=== PATIENT | female | born 1945 | race Caucasian/White ===

== ENCOUNTER → 2022-10-03 12:16 | Outpatient (CLI) | payer MEDICARE, SELFPAY ==
--- NOTE | ~2022-10-03 | DEXA_ITS ---
Bone Density Report Name: BOB DIAZ Age: 76 Sex: Female Ethnicity: White Date of : 1945 Indication: postmenopausal; screening for osteoporosis; height loss; prior fracture; hysterectomy; Referring Provider: TYE POSEY Study: Bone densitometry was performed. Exam Date: October 03, 2022 Accession number: [id number] Bone Density: Region BMD T-score Z-score Classification AP Spine (L1-L4) 0.881 -1.5 1.0 Osteopenia Femoral Neck (Left) 0.585 -2.4 -0.2 Osteopenia Total Hip (Left) 0.715 -1.9 0.0 Osteopenia Femoral Neck (Right) 0.617 -2.1 0.1 Osteopenia Total Hip (Right) 0.727 -1.8 0.1 Osteopenia Total Hip Mean 0.721 -1.9 0.1 Osteopenia World Health Organization criteria for BMD impression classify patients as: Normal (T-score at or above -1.0), Osteopenia (T-score between -1.0 and -2.5), or Osteoporosis (T-score at or below -2.5). 10-year Fracture Risk(1): Major Osteoporotic Fracture 28% Hip Fracture 10% Reported Risk Factors: [place] (), Neck BMD=0.585, BMI=23.4, previous fracture, alcohol use (1) FRAX(R) Version 3.08. Fracture probability calculated for an untreated patient. Fracture probability may be lower if the patient has received treatment. Clinical Information Provided by Patient: Has had a low trauma fracture Has 3 or more alcoholic drinks per day Has used the following medications: Vitamin D, Calcium, LEVOTHYROXINE Has the following medical conditions: Hysterectomy Patient maximum height was 65.0 Menopause Age: 30 Drinks caffeinated beverages Onset of menses at age 13 Number of children 3 Impression: The patient has low bone mass, based on the Left Femoral Neck T-score. The patient has an estimated ten-year risk of hip fracture of 10% and an estimated ten-year risk of major fracture of 28%, based on the WHO FRAX algorithm. The patient has risk factors, including: excessive alcohol use, previous fracture. Discussion: BONE DENSITY IS LOW AT ONE OR MORE SKELETAL SITES. THE PATIENT'S BMD AND CLINICAL RISK FACTORS CONTRIBUTE TO THIS PATIENT'S HIGH RISK OF FRACTURE. This patient's lowest T-score is low at one or more skeletal sites. It meets the World Health Organization's (WHO) criteria for ?low bone mass? (T-score between -1.0 and -2.5). The patient's 10-year risk of hip fracture and 10 year risk of a major osteoporotic fracture as calculated by FRAX exceeds the threshold where pharmacological therapy is recommended by the National Osteoporosis Foundation (NOF). However, all treatment decisions require clinical judgment and consideration of individual patient factors, including patient preferences, comorbidities, previous drug use, risk factors not captured in the FRAX model (e.g., frailty, falls, vitamin D deficiency, increased bone turnover, interval significa
== END ==
PROVIDERS: PCP Obstetrics & Gynecology Gynecology; Visit Provider Obstetrics & Gynecology Gynecology
DX: Z78.0 Asymptomatic menopausal state (principal); M85.88 Other specified disorders of bone density and structure, other site; M85.852 Other specified disorders of bone density and structure, left thigh; M85.851 Other specified disorders of bone density and structure, right thigh
CPT/HCPCS: 77080

== ENCOUNTER 2025-07-22 08:18 | Outpatient (CLI) | payer MEDICARE, SELFPAY ==
--- OUTSIDE RECORDS SUMMARY | 2019-03-05 11:10 | XMS_ITS | Continuity of Care Document ---
Author Organization [facility] [employer] Address [address] [place] [address] Phone Care Team Providers Care Collet Driller Name Role Phone Chaz Vernon DO Unava ilable Allergies, Adverse Reactions, Alerts Substance Reaction Status Criticality No Known Drug Allergies Other Active No I nformation Medications Medication Instructions Dosage Effective Dates (start - stop) Status Comments Levoxyl 112 mcg tablet TAKE 1 TABLET BY MOUTH EVERY DAY - Active ATORVASTATIN 40 MG TABLET TAKE 1 TABLET BY MOUTH EVERY DAY - Active potassium chloride ER 10 mEq capsule,extended release TAKE 3 CAPSULES EVERY MORNING AND 3 CAPSULES BY MOUTH EVERY EVENING - Active indapamide 2.5 mg tablet TAKE 1 TABLET BY MOUTH EVERY MORNING - Active clonidine HCl 0.2 mg tablet TAKE 1 TABLET BY MOUTH EVERY DAY - Active ProAir HFA 90 mcg/actuation aerosol inhaler inhale 2 puff by inhalation route every 4 - 6 hours as needed - Active AMLODIPINE BESYLATE 10 MG TAB TAKE 1 TABLET BY MOUTH EVERY DAY 10 MG - Active SINGULAIR 10 MG TABLET TAKE 1 TABLET BY MOUTH AT BEDTIME - Active omeprazole 20 mg capsule,delayed release TAKE ONE CAPSULE BY MOUTH EVERY MORNING - Active Vitamin B-12 500 mcg tablet take 1 Tablet by Oral route every day 1 Tablet - Active Caltrate 600 + D 600 mg (1,500 mg)-800 unit chewable tablet 1 tablet every other day - Active biotin 1 mg capsule Take 1 tablet daily 6 - Active Vitamin D3 1,000 unit tablet take 1 by Oral route QD 1 - Active Aspirin Low Dose 81 mg tablet,delayed release take 1 tablet by oral route every other day - Active LEVOTHYROXINE 112 MCG TABLET TAKE 1 TABLET BY MOUTH EVERY DAY - No Longer Active Advance Directives Directive Yes / No Effective Date File Name No Information Encounters Encounter Description Practice Location Reason(s) For Visit Diagnoses Date Provider Providers Copied on Encounter [facility], [address], [place], [place], [address] , tel: [phone] [facility] No Information 9 Cinda Ware. [address] [place] [address], [id number], [place]. tel:[phone] [facility], [address], [place], [place], [address] , tel: [phone] [facility] No Information 9 Cinda Ware. [address] [place] [address], [id number], [place]. tel:[phone] [facility], [address], [place], [place], [address] , tel: [phone] [facility] No Information 9 Cinda Ware. [address] [place] [address], [id number], [place]. tel:[phone] [facility], [address], [place], [place], [address] , tel:[phone] [facility] No Information 9 Cinda Ware. [address] [place] [address], [id number], [place]. tel:[phone] [facility], [address], [place], [place], [address] , tel:[phone] [facility] No Information 8 Cinda Ware. [address] [facility], [place], [place], [address], [place]. tel:[phone] [facility], [address], [place], [place], [address] , [place] tel: [phone] [facility] Essential (primary) hypertensionHyp erlipidemia, unspecifiedHypo natremiaUnspeci fied asthma, uncomplicatedHy pothyroidism, unspecifiedGast ro-esophageal reflux disease without esophagitisClos ed nondisplaced fracture of acromial end of right clavicle with routine healing, subsequent encounter Yuval Mcgovern. [address] [facility], [address], [place], [place], [address]. tel:[phone] Referring Provider: Froilan Barakat, [address] [facility] [address], [place], [address] . tel:[phone] [facility], [address], [place], [address] , [place] tel: [phone] [facility] Essential (primary) hypertensionHyp erlipidemia, unspecifiedHypo thyroidism, unspecified 8 Yuval Mcgovern. [address] [facility], [address], [place], [place], [address]. tel:[phone] Referring Provider: Froilan Barakat, [address] [facility] [address], [place], [address] . tel:[phone] [facility], [address], [place], [place], [address] , [place] tel: [phone] [facility] No Information 8 Yuval Mcgovern. [address] [facility], [address], [place], [place], [address]. tel:[phone] [facility], [address], [place], [place], [address] , [place] tel: [phone] [facility] No Information 8 Yuval Mcgovern. [address] [facility], [address], [place], [place], [address]. tel:[phone] [facility], [address], [place], [address] , [place] tel: [phone] [facility] Essential (primary) hypertensionHyp erlipidemia, unspecifiedHypo natremiaUnspeci fied asthma, uncomplicatedHy pothyroidism, unspecifiedGast ro-esophageal reflux disease without esophagitis Mar-0 8 Yuval Mcgovern. [address] [facility] [address], [address], [place], [place], [address]. tel:[phone] Referring Provider: Froilan Barakat, [address] [facility] [address], [place], [address] . tel:[phone] [facility], [address], [place], [place], [address] , tel: [phone] [facility] Essential (primary) hypertensionHyp erlipidemia, unspecifiedAbno rmal glucose Kishan- 8 Yuval Mcgovern. [address] [facility], [address], [place], [place], [address]. tel:[phone] Referring Provider: Froilan Barakat, [address] [facility] [address], [place], [address] . tel:[phone] [facility], [address], [place], [place], [address] , [place] tel: [phone] [facility] No Information Sep- 7 Madisyn Patton. [address] [facility], [address], [place], [place], [address], [place]. tel:[phone] [facility], [address], [place], [place], [address] , [place] tel: [phone] [facility] Slow heart rate Sep- 7 Yuval Mcgovern. [address] [facility], [address], [place], [place], [address]. tel:[phone] [facility], [address], [place], [address] , [place] tel: [phone] [facility] Hypothyroidism, unspecifiedEsse ntial (primary) hypertensionGas tro-esophageal reflux disease without esophagitisAlle rgic rhinitis, unspecifiedUnsp ecified asthma, uncomplicatedMi tral valve prolapseHyperli pidemia, unspecifiedHypo natremiaSciatic a of left sideGreater trochanteric bursitis of left hipPrimary osteoarthritis of left knee 0 Barakatjayce Mcgovern. [address], [address], [place], [place], [address]. tel:[phone] Referring Provider: Froilan Barakat, [address] [facility] [address], [place], [address] . tel:[phone] [facility], [address], [place], [place], [address] , tel: [phone] [facility] Hypothyroidism, unspecifiedEsse ntial (primary) hypertensionHyp erlipidemia, unspecified Barakatjayce Mcgovern. [address] [facility] [address], [place], [place], [address]. tel:[phone] Referring Provider: Froilan Barakat, [address] [facility] [address], [place], [address] . tel:[phone] [facility], [address], [place], [place], [address] , tel: [phone] [facility] Sciatica of left side Yuval Mcgovern. [address], [address], [place], [place], [address]. tel:[phone] [facility], [address], [place], [place], [address] , [place] tel: [phone] [facility] Hypothyroidism, unspecifiedEsse ntial (primary) hypertensionGas tro-esophageal reflux disease without esophagitisAlle rgic rhinitis, unspecifiedUnsp ecified asthma, uncomplicatedMi tral valve prolapseHyperli pidemia, unspecifiedHypo natremiaLeft sided sciatica Yuval Mcgovern. [address] [facility], [address], [place], [place], [address]. tel:[phone] Referring Provider: Froilan Barakat, [address] [facility] [address], [place], [address] . tel:[phone] [facility], [address], [place], [place], [address] , tel: [phone] [facility] Essential (primary) hypertensionHyp erlipidemia, unspecified 7 Yuval Mcgovern. [address] [facility], [address], [place], [place], [address]. tel:[phone] Referring Provider: Froilan Barakat, [address] [facility] [address], [place], [address] . tel:[phone] [facility], [address], [place], [place], [address] , tel: [phone] [facility] Hypothyroidism, unspecifiedEsse ntial (primary) hypertensionGas tro-esophageal reflux disease without esophagitisAlle rgic rhinitis, unspecifiedHype rlipidemia, unspecifiedUnsp ecified asthma, uncomplicatedMi tral valve prolapse 6 Yuval Mcgovern. [address] [facility], [address], [place], [place], [address]. tel:[phone] Referring Provider: Froilan Barakat, [address] [facility] [address], [place], [address] . tel:[phone] [facility], [address], [place], [place], [address] , [place] tel: [phone] [facility] Frequent urination 6 Yuval Mcgovern. [address] [facility], [address], [place], [address]. tel:[phone] Referring Provider: Froilan Barakat, [address] [facility] [address], [place], [address] . tel:[phone] [facility], [address], [place], [place], [address] , tel: [phone] [facility] Post-menopausal Kishan-0 6 Yuval Mcgovern. [address] [facility], [address], [place], [place], [address]. tel:[phone] [facility] [address], [place], [place], [address] , tel: [phone] [facility] Essential (primary) hypertensionHyp othyroidism, unspecifiedHype rlipidemia, unspecifiedAlle rgic rhinitis, unspecifiedUnsp ecified asthma, uncomplicatedGa stro-esophageal reflux disease without esophagitisMitr al valve prolapse 6 Yuval Mcgovern. [address] [facility], [address], [place], [place], [address]. tel:[phone] Referring Provider: Froilan Barakat, [address] [facility] [address], [place], [address] . tel:[phone] [facility] [address], [place], [place], [address] , tel: [phone] [facility] Hyperlipidemia, unspecified 6 Yuval Mcgovern. [address] [facility], [address], [place], [place], [address]. tel:[phone] Referring Provider: Froilan Barakat, [address] [facility] [address], [place], [address] . tel:[phone] [facility] [address], [place], [place], [address] , tel: [phone] [facility] Encounter for immunizationAll ergic rhinitis, unspecifiedHype rlipidemia, unspecifiedEsse ntial (primary) hypertensionHyp othyroidism, unspecifiedUnsp ecified asthma, uncomplicated 5 Yuval Mcgovern. [address] [facility], [address], [place], [place], [address]. tel:[phone] Referring Provider: Froilan Barakat, [address] [facility] [address] [place] [address], [address] . tel:[phone] [facility], [address], [place], [place], [address] , tel: [phone] [facility] Essential (primary) hypertensionHyp othyroidism, unspecifiedHype rlipidemia, unspecified Nov-2 0-201 5 Yuval Mcgovern. [address] [facility], [address], [place], [place], [address]. tel:[phone] Referring Provider: Froilan Barakat, [address] [facility] [address], [place], [address] . tel:[phone] [facility], [address], [place], [place], [address] , tel: [phone] [facility] Allergic rhinitis, cause unspecifiedAsth maESOPHAGEAL REFLUXOther and unspecified hyperlipidemiaU nspecified essential hypertensionPri sihra hypothyroidismT MJ (temporomandibu lar joint syndrome) 5 5 Yuval Mcgovern. [address] [facility], [address], [place], [place], [address]. tel:[phone] Referring Provider: Froilan Barakat, [address] [facility] [address], [place], [address] . tel:[phone] [facility], [address], [place], [place], [address] , tel: [phone] [facility] Carotid artery calcification Jan-2 2201 5 Yuval Mcgovern. [address] [facility], [address], [place], [place], [address]. tel:[phone] [facility], [address], [place], [place], [address] , [place] tel: [phone] [facility] Neck pain Jan-2 1-201 5 Yuval Mcgovern. [address] [facility], [address], [place], [place], [address]. tel:[phone] [facility], [address], [place], [address] , [place] tel: [phone] [facility] Allergic rhinitis, cause unspecifiedAsth maESOPHAGEAL REFLUXOther and unspecified hyperlipidemiaP rimary hypothyroidismU nspecified essential hypertensionInf luenza Vaccine 4 Yuval Mcgovern. [address] [facility], [address], [place], [place], [address]. tel:[phone] Referring Provider: Froilan Barakat, [address] [facility] [address], [place], [address] . tel:[phone] [facility], [address], [place], [place], [address] , tel: [phone] [facility] Unspecified essential hypertensionOth er and unspecified hyperlipidemia 4 Yuval Mcgovern. [address] [facility], [address], [place], [place], [address]. tel:[phone] Referring Provider: Froilan Barakat, [address] [facility] [address], [place], [address] . tel:[phone] [facility], [address], [place], [place], [address] , tel: [phone] [facility] History of fall/At Risk For FallingAllergic rhinitis, cause unspecifiedAsth maESOPHAGEAL REFLUXPrimary hypothyroidismP VC (premature ventricular contraction)Hyp ertensionHyperl ipidemia 4 Yuval Mcgovern. [address] [facility], [address], [place], [place], [address]. tel:[phone] Referring Provider: Froilan Barakat, [address] [facility] [address], [place], [address] . tel:[phone] [facility], [address], [place], [place], [address] , tel: [phone] [facility] Other and unspecified hyperlipidemiaI MPAIRED FASTING GLUCOSEHTN 4 Yuval Mcgovern. [address] [facility], [address], [place], [place], [address]. tel:[phone] Referring Provider: Froilan Barakat, [address], [place], [address] . tel:[phone] [facility], [address], [place], [place], [address] , tel: [phone] [facility] Urinary Tract Infection Sep- 3-201 3 Yuval Mcgovern. [address] [facility] [address], [place], [place], [address]. tel:[phone] Referring Provider: Froilan Barakat, [address] [facility] [address], [place], [address] . tel:[phone] [facility], [address], [place], [place], [address] , tel: [phone] [facility] AsthmaESOPHAGEA L REFLUXHypertens ionPrimary hypothyroidismH yperlipidemiaPV Cs (premature ventricular contractions)Si nus bradycardia 0201 3 Yuval Mcgovern. [address] , [address], [place], [place], [address]. tel:[phone] Referring Provider: Froilan Barakat, [address] [facility] [address], [place], [address] . tel:[phone] [facility] [address], [place], [place], [address] , tel: [phone] [facility] OTHER ABNORMAL GLUCOSEHTNOther and unspecified hyperlipidemia 6 3 Yuval Mcgovern. [address] , [address], [place], [place], [address]. tel:[phone] Referring Provider: Froilan Barakat, [address] [facility] [address], [place], [address] . tel:[phone] [facility], [address], [place], [place], [address] , tel: [phone] [facility] No Information 7 3 Yuvla Mcgovern. [address] [facility] [address], [place], [place], [address]. tel:[phone] [facility], [address], [place], [address] , tel: [phone] [facility] Glucose intolerance (pre-diabetes)A sthmaHypertensi onPrimary hypothyroidismO ther and unspecified hyperlipidemia 3 Yuval Mcgovern. [address] [facility], [address], [place], [place], [address]. tel:[phone] Referring Provider: Froilan Barakat, [address] [facility] [address], [place], [address] . tel:[phone] [facility], [address], [place], [place], [address] , tel: [phone] [facility] Unspecified essential hypertensionOth er and unspecified hyperlipidemia 3 Yuval Mcgovern. [address] [facility], [address], [place], [place], [address]. tel:[phone] Referring Provider: Froilan Barakat, [address] [facility] [address], [place], [address] . tel:[phone] [facility], [address], [place], [place], [address] , tel: [phone] [facility] Unspecified essential hypertensionOth er and unspecified hyperlipidemiaA STHMA,UNSPECIFI ED TYPE, UNSPECIFIEDAlle rgic rhinitis, cause unspecifiedGluc ose intolerance (pre-diabetes)P VC (premature ventricular contraction)PAC (premature atrial contraction) 2 Yuval Mcgovern. [address] [facility], [address], [place], [place], [address]. tel:[phone] Referring Provider: Froilan Barakat, [address] [facility] [address], [place], [address] . tel:[phone] [facility], [address], [place], [place], [address] , tel: [phone] [facility] Other and unspecified hyperlipidemiaL sherrie-term (current) use of other medications 2 Yuval Mcgovern. [address] , [address], [place], [place], [address]. tel:[phone] Referring Provider: Froilan Barakat, [address], [place], [address] . tel:[phone] [facility], [address], [place], [place], [address] , tel: [phone] [facility] HyperlipidemiaP rimary hypothyroidismA sthmaOsteoarthr itisCystoceleAl lergic rhinitisNeed for prophylactic vaccination and inoculation against streptococcus pneumoniae [pneumococcus] 2 Yuval Mcgovern. [address] , [address], [place], [place], [address]. tel:[phone] Referring Provider: Froilan Barakat, [address] [facility] [address] [place] [address], [address] . tel:[phone] [facility], [address], [place], [place], [address] , [place] tel: [phone] [facility] ASTHMA,UNSPECIF IED TYPE, UNSPECIFIEDOthe r and unspecified hyperlipidemiaU nspecified essential hypertensionOst eoarthrosis, generalized, involving unspecified siteIMPAIRED FASTING GLUCOSE 2 Yuval Mcgovern. [address] , [address], [place], [address]. tel:[phone] Referring Provider: Froilan Barakat, [address] [facility] [address], [place], [address] . tel:[phone] [facility], [address], [place], [address] , [place] tel: [phone] [facility] Urinary tract infection, site not specified 2 Yuval Mcgovern. [address] , [address], [place], [address]. tel:[phone] Referring Provider: Froilan Barakat, [address] [facility] [address], [place], [address] . tel:[phone] [facility], [address], [place], [place], [address] , tel: [phone] [facility] Urgency of urinationAbdomi nal pain Mar-0 2 Yuval Mcgovern. [address] [facility], [address], [place], [place], [address]. tel:[phone] Referring Provider: Froilan Barakat, [address] [facility] [address], [place], [address] . tel:[phone] [facility], [address], [place], [address] , [place] tel: [phone] [facility] ASTHMA NOSOther and unspecified hyperlipidemiaH YPERTENSION NOSGENERAL OSTEOARTHROSISI MPAIRED FASTING GLUCOSE Sep-2 3 1 Yuval Mcgovern. [address] [facility], [address], [place], [place], [address]. tel:[phone] Referring Provider: Froilan Barakat, [address] [facility] [address], [place], [address] . tel:[phone] [facility], [address], [place], [place], [address] , tel: [phone] [facility] Unspecified essential hypertensionOth er and unspecified hyperlipidemiaH YPOTHYROIDISM NOSIMPAIRED FASTING GLUCOSE Sep-2 0 1 Yuval Mcgovern. [address] [facility], [address], [place], [place], [address]. tel:[phone] Referring Provider: Froilan Barakat, [address] [facility] [address], [place], [address] . tel:[phone] [facility], [address], [place], [address] , [place] tel: [phone] [facility] AC SEROUS OTITIS MEDIAHYPOTHYROI DISM NOSIMPAIRED FASTING GLUCOSEHYPERTEN SUNG NOSHYPERLIPIDEM IA NEC/NOS February- 1 Yuval Mcgovern. [address] [facility], [address], [place], [place], [address]. tel:[phone] [facility], [address], [place], [address] , [place] tel:[phone] [facility] PRSNL HST COLONIC POLYPS Nov-0 3-201 0 Barakat Froilan. [address], [address], [place], [place], [address]. tel:[phone] [facility], [address], [place], [place], [address] , [place] tel:[phone] [facility] ASTHMA NOS Oct-2 9-201 0 Barakat Froilan. [address] [facility] [address], [address], [place], [place], [address]. tel:[phone] [facility], [address], [place], [place], [address] , [place] tel: [phone] [facility] ALLERGIC RHINITIS NOSESOPHAGEAL REFLUXGENERAL OSTEOARTHROSIS February-2 1-201 0 Barakat Froilan. [address], [address], [place], [place], [address]. tel:[phone] [facility], [address], [place], [place], [address] , [place] tel: [phone] [facility] BACKACHE NOSDYSPHAGIA NOS Nov-0 6-200 9 Barakat Froilan. [address] [facility], [address], [place], [place], [address]. tel:[phone] [facility], [address], [place], [place], [address] , [place] tel:[phone] [facility] MIXED HYPERLIPIDEMIA Apr-2 9-200 9 Barakat Froilan. [address] [facility] [address], [address], [place], [place], [address]. tel:[phone] [facility], [address], [place], [place], [address] , [place] tel:[phone] [facility] HYPERPOTASSEMIA Dec-0 5-200 8 Barakat Froilan. [address] [facility] [address], [address], [place], [place], [address]. tel:[phone] [facility], [address], [place], [place], [address] , [place] tel:[phone] [facility] No Information Nov-0 3-200 8 Barakat Froilan. [address] [facility], [address], [place], [place], [address]. tel:[phone] [facility], [address], [place], [place], [address] , [place] tel:[phone] [facility] LONG-TERM USE MEDS NEC Oct-2 9-200 8 Barakat Froilan. [address] [facility], [address], [place], [place], [address]. tel:[phone] [facility], [address], [place], [place], [address] , tel:[phone] [facility] MITRAL VALVE DISORDER May-0 2-200 8 Barakat Froilan. [address] [facility], [address], [place], [place], [address]. tel:[phone] [facility], [address], [place], [place], [address] , [place] tel:[phone] [facility] URIN TRACT INFECTION NOS Apr-2 0-200 7 Barakat Froilan. [address] [facility], [address], [place], [place], [address]. tel:[phone] [facility], [address], [place], [place], [address] , [place] tel:[phone] [facility] LUMBAGO Oct-0 5-200 6 Barakat Froilan. [address] [facility], [address], [place], [place], [address]. tel:[phone] [facility], [address], [place], [place], [address] , [place] tel:[phone] [facility] PURE HYPERCHOLESTERO RISHI Mar-3 1-200 6 Barakat Froilan. [address] [facility], [address], [place], [place], [address]. tel:[phone] [facility], [address], [place], [place], [address] , [place] tel: [phone] [facility] LEG VARICOSITY W INFLAM Kishan-0 3-200 5 Barakat Froilan. [address] [facility], [address], [place], [place], [address]. tel:[phone] [facility] [facility], [address], [place], [place], [address] , [place] tel: [phone] [facility] URINARY FREQUENCY Apr-2 1-200 5 Barakat Froilan. [address] [facility], [address], [place], [place], [address]. tel:[phone] [facility], [address], [place], [place], [address] , [place] tel: [phone] [facility] SCREEN MAL NEOP-RECTUM Apr-1 4-200 5 Barakat Froilan. [address] [facility], [address], [place], [place], [address]. tel:[phone] [facility], [address], [place], [place], [address] , [place] tel: [phone] [facility] TETANUS TOXOID INOCULAT Apr-0 6-200 5 Barakat Froilan. [address] [facility], [address], [place], [place], [address]. tel:[phone] [facility], [address], [place], [place], [address] , [place] tel: [phone] [facility] TRIGGER FINGER Sep-0 2-200 4 Barakat Froilan. [address] [facility], [address], [place], [place], [address]. tel:[phone] [facility], [address], [place], [place], [address] , [place] tel:[phone] [facility] MITRAL/AORTIC V DIS NOS Dec-1 8-200 3 Barakat Froilan. [address] [facility], [address], [place], [place], [address]. tel:[phone] [facility], [address], [place], [place], [address] , tel: [phone] [facility] BENIGN PARXYSMAL VERTIGODIZZINES S AND GIDDINESS February- 6-200 3 Barakat Froilan. [address], [address], [place], [place], [address]. tel:[phone] [facility], [address], [place], [place], [address] , tel: [phone] [facility] JOINT PAIN-ANKLE Sep-3 0-200 2 Barakat Froilan. [address], [address], [place], [place], [address]. tel:[phone] [facility], [address], [place], [place], [address] , tel: [phone] [facility] NONSPECIF SKIN ERUPT NEC 9-200 2 Barakat Froilan. [address], [address], [place], [place], [address]. tel:[phone] [facility], [address], [place], [place], [address] , tel: [phone] [facility] SCREEN MAL NEOP OT SITE May-0 1-200 2 Barakat Froilan. [address] , [address], [place], [place], [address]. tel:[phone] Family History Family Member Type Diagnosis Age At Onset Father Problem (finding) Mother Problem (finding) Brother X 2 Problem (finding) Hyperlipidemia in one Father Problem (finding) malignant neop lasm of lung (Cause Of ) Mother Problem (finding) pulmonary emphysema (Ca use Of ) Immunizations Vaccine Date Status Comments Tdap administered Note: [facility] ; Source: Other Provider Fluzone High-Dose, high dose , preservative free administered Note: [facility] ; Source: Other Provider Fluzone High-Dose [id number], high dose, preservative free administered Source: Oth er Provider influenza, injectable, quadrivalent, (3 years or older) administered Source: New Immuniza tion Record Pneumococcal conjugate PCV 13 administere d Source: New Immunization Record Influenza, injectable, quadrivalent, preservative free, 3 yrs or older administered Source: New Immuniz ation Record Pneumo (2 yrs or older) (PPV23) administered Source: New Immuniza tion Record [id number] - TD administered Source: Source Unspecified Payers Payer name Insurance type Covered alliance party ID Authoriza tion(s) [place] [id number] LOCAL 309 [employer] CLAIMS CI [id number] [place] [id number] LOCAL 309 [employer] [employer] CLAIMS CI [id number] [place] [id number] LOCAL 309 [employer] CLAIMS CI [id number] Social History Type Description Quantity Date Captured Comments Sex Female Smoking Status No Information Chief Complaint And Reason For Visit No Information Reason For Referral Reason For Referral No Information History Of Present Illness Encounter Date Complaint History Of Prese nt Illness No Information Functional Status Date Functional Assessmen t No Information Instructions Date Instruction Additional Infor mation No Information Assessments Type Assessment Date No Information Patient Care Teams Name Effective Dates (start - stop) Status Members No Information
--- OUTSIDE RECORDS SUMMARY | 2025-07-22 08:26 | XMS_ITS | Clinical Summary ---
Author Organization [facility] Address [address] [facility] [place] [address] Care Team Providers Care Regional Telecommunications Specialist Name Role Phone Forilan Barakat MD Primary Care Provider Source Comments [facility] Affiliates and Associated Physician Practices is amultiple site organization consisting of ambulatory clinics and hospital sitesin [place], [place], [place] and [place]. This disclosure is being madepursuant to the Care Everywhere program and may not contain all information available regarding this patient. Last updated 18.[facility] Active Problems Problem Noted Date Diagnosed Date Rectocele 08/17/2014 Family History Medical History Relation Name Comments Cancer - Skin, Non Melanoma Brother Cancer Father lung Cancer - Skin, Non Melanoma Son Allergy (Severe) Neg Hx CVA Neg Hx Cancer - Breast Neg Hx Cancer - Skin, Melanoma Neg Hx Eczema Neg Hx Hemophilia Neg Hx Psoriasis Neg Hx Rashes/Skin Problems Neg Hx Relation Name Status Comments Brother Father Son Social History Tobacco Use Types Packs/Day Years Used Date Smoking Tobacco: Former Cigarettes Q uit: 10/21/1980 Alcohol Use Standard Drinks/Week Comments No 0 (1 standard drink = 0.6 oz pur e alcohol) Comments Unknown Sex and Gender Information Value Date Recorded Sex Assigned at Not on file 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 Gender Identity Not on file Sexual Orientation Not on file Last Filed Vital Signs Vital Sign Reading Time Taken Comments Blood Pressure 132/82 08/17/2014 10:57 AM CDT Pulse - - Temperature - - Respiratory Rate - - Oxygen Saturation - - Inhaled Oxygen Concentration - - Weight 59.9 kg (132 lb) 08/17/2014 10:57 AM CDT Height 166.4 cm (5' 5.5) 08/17/2014 10:57 AM CD T Body Mass Index 21.63 08/17/2014 10:57 AM CDT Plan of Treatment Health Maintenance Due Date Last Done Comments BONE DENSITY TESTING 1945 DTAP/TDAP/TD VACCINES (1 - Tdap) 1964 PNEUMOCOCCAL VACCINE 50+ (1 of 1 - PCV) 1995 ZOSTER VACCINE (1 of 2) 1995 Respiratory Syncytial Virus (RSV) Vaccine Pt: or over 60 yrs (1 - 1-dose 75+ series) 2020 DEPRESSION SCREENING 10/21/2024 COVID-19 VACCINE (1 - 2023-2 5 season) 2025 INFLUENZA VACCINE (#1) 2025 HEPATITIS B VACCINE Aged Out No longe r eligible based on patient's age to complete this topic HIB VACCINE Aged Out No longer eligi ble based on patient's age to complete this topic HPV VACCINE Aged Out No longer eligi ble based on patient's age to complete this topic MENINGOCOCCAL (Group B) VACC INE SHARED DECISION-MAKING Aged Out No longer eligibl e based on patient's age to complete this topic MENINGOCOCCAL GROUPS A/C/Y/W VACCINE Aged Out No longer eligible b ased on patient's age to complete this [place] [address] MEDICARE AETNA Care Teams Regional Telecommunications Specialist Relationship Specialty Start Date End Date Froilan Barakat MD [address] [place] [address] PCP - General 11/13/11
--- OUTSIDE RECORDS SUMMARY | 2025-07-22 08:26 | XMS_ITS | Encounter Summary ---
Author Organization [facility] Facility Care Team Providers Care Solar Engineer Name Role Phone Mere John MD Primary Care Provi jazmin Mere John MD Primary Care Provi jazmin Jaden Garcia MD Unavailable [phone] Tavia Damon MD Unavailable [phone] Vitor Snyder MD Unavailable [phone] Ema Florentino Unavailable [phone] Encounter Details Date Type Department Care Team (Latest Contact Info) Description 09/09/2015 Orders Only [facility] CLINCONV ProviderTulio MD [address] [place] [address] Social History Tobacco Use Types Packs/Day Years Used Date Smoking Tobacco: Never Assessed Comments Unknown Sex and Gender Information Value Date Recorded Sex Assigned at Not on file 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 Historical Provider Final Res ult documented in this encounter Visit Diagnoses Not on filedocumented in this encounter Care Teams Solar Engineer Relationship Specialty Start Date End Date Mere John MD [address] [place] [address] PCP - General Family Medicine 01/10/19 03/08/19 Mere John MD [address] [place] [address] PCP - General Family Medicine 03/09/19 Jaden Garcia MD [address] [place] [address] Commissions Analyst Cardiology 06/26/19 03/18/25 Tavia Damon MD [address] [facility] [address] [place] [address] Referring Physician Gynecology 10/05/24 [place] [address] [facility] [address] [place] [address] Referring Physician Cardiovascular Disease 03/19/25 Ema Florentino PA [address] [facility] [address] [place] [address] Physician Insulation Blower Orthopedic Surgery 04/02/25 documented as of this encounter
--- OUTSIDE RECORDS SUMMARY | 2025-07-22 08:26 | XMS_ITS | Encounter Summary ---
Author Organization [facility] Facility Care Team Providers Care Magnetizer Name Role Phone Mere John MD Primary Care Provi jazmin Mere John MD Primary Care Provi jazmin Jaden Garcia MD Unavailable [phone] Tavia Damon MD Unavailable [phone] Vitor Snyder MD Unavailable [phone] Ema Florentino Unavailable [phone] Encounter Details Date Type Department Care Team (Latest Contact Info) Description 03/22/2017 Orders Only [facility] CLINCONV ProviderTulio MD [address] [place] [address] Social History Tobacco Use Types Packs/Day Years Used Date Smoking Tobacco: Never Assessed Comments Unknown Sex and Gender Information Value Date Recorded Sex Assigned at Not on file 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 us Historical Provider Final Res ult documented in this encounter Visit Diagnoses Not on filedocumented in this encounter Care Teams Magnetizer Relationship Specialty Start Date End Date Mere John MD [address] [place] [address] PCP - General Family Medicine 01/10/19 03/08/19 Mere John MD [address] [place] [address] PCP - General Family Medicine 03/09/19 Jaden Garcia MD [address] [place] [address] Abrasive Grader Helper Cardiology 06/26/19 03/18/25 Tavia Damon MD [address] [facility] [address] [place] [address] Referring Physician Gynecology 10/05/24 [place] [address] [facility] [address] [place] [address] Referring Physician Cardiovascular Disease 03/19/25 Ema Florentino PA [address] [facility] [address] [place] [address] Physician Flame Planer Orthopedic Surgery 04/02/25 documented as of this encounter
--- OUTSIDE RECORDS SUMMARY | 2025-07-22 08:26 | XMS_ITS | Encounter Summary ---
Author Organization [facility] Facility Care Team Providers Care Industrial Custodian Name Role Phone Mere John MD Primary Care Provi jazmin Mere John MD Primary Care Provi jazmin Jaden Garcia MD Unavailable [phone] Tavia Damon MD Unavailable [phone] Vitor Snyder MD Unavailable [phone] Ema Florentino Unavailable [phone] Encounter Details Date Type Department Care Team (Latest Contact Info) Description 03/13/2016 Orders Only [facility] CLINCONV ProviderTulio MD [address] [place] [address] Social History Tobacco Use Types Packs/Day Years Used Date Smoking Tobacco: Never Assessed Comments Unknown Sex and Gender Information Value Date Recorded Sex Assigned at Not on file 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 us Historical Provider Final Res ult documented in this encounter Visit Diagnoses Not on filedocumented in this encounter Care Teams Industrial Custodian Relationship Specialty Start Date End Date Mere John MD [address] [place] [address] PCP - General Family Medicine 01/10/19 03/08/19 Mere John MD [address] [place] [address] PCP - General Family Medicine 03/09/19 Jaden Garcia MD [address] [place] [address] Deckhand Engineer Cardiology 06/26/19 03/18/25 Tavia Damon MD [address] [facility] [address] [place] [address] Referring Physician Gynecology 10/05/24 [place] [address] [facility] [address] [place] [address] Referring Physician Cardiovascular Disease 03/19/25 Ema Florentino PA [address] [facility] [address] [place] [address] Physician Intelligence Manager Orthopedic Surgery 04/02/25 documented as of this encounter
--- OUTSIDE RECORDS SUMMARY | 2025-07-22 08:26 | XMS_ITS | Clinical Summary ---
Author Organization [address] Address [address] [place] [address] [place] [address] Care Team Providers Care Walking Dragline Oiler Name Role Phone Mere John MD Primary Care Provi jazmin Tavia Damon MD Unavailable [phone] Vitor Snyder MD Unavailable [phone] Ema Florentino Unavailable Allergies Active Allergy Reactions Criticality Noted Date Comments Adhesive Redness Low 03/19/2025 Irritates skin- gets red/bruiseseasily Medications risedronate (ACTONEL) 150 mg tabletIndication s:Post-Menopausa l Osteoporosis Take 1 tablet (150 mg total) by mouth every 30 (thirty) days Takes 15 of each month 3 Active albuterol HFA (PROVENTIL HFA,VENTOLIN HFA,PROAIR HFA) 90 mcg/actuation inhalerIndicatio ns:Allergic cough INHALE 2 PUFFS EVERY 4 HOURS NEEDED FOR WHEEZING OR SHORTNESS OF BREATH 8.5 each 5 4 Active levothyroxine (SYNTHROID) 112 mcg tablet TAKE 1 TABLET BY MOUTH EVERY DAY 90 tablet 2 5 Active losartan (COZAAR) 25 mg tablet TAKE 1 TABLET (25 MG TOTAL) BY MOUTH DAILY. 90 tablet 3 5 01/13/20 26 Active Additional Information Patient not taking.Reported on 07/16/2025 Eliquis 5 mg tablet TAKE 1 TABLET BY MOUTH TWICE A DAY 180 tablet 2 5 Active atorvastatin (LIPITOR) 40 mg tablet TAKE 1 TABLET BY MOUTH EVERY DAY 90 tablet 2 5 Active metoprolol XL (TOPROL-XL) 25 mg extended release tablet Take 1 tablet (25 mg total) by mouth daily 90 tablet 3 5 01/26/20 26 Active multivitamin tabletIndication s:Vitamin Deficiency Prevention Take 1 tablet by mouth Active cholecalciferol (VITAMIN D-3) 400 unit capsule Take 1 tablet/capsule (400 Units total) by mouth daily Active spironolactone (ALDACTONE) 50 mg tablet Take 1 tablet (50 mg total) by mouth daily 30 tablet 11 5 05/06/20 26 Active montelukast (SINGULAIR) 10 mg tablet TAKE 1 TABLET BY MOUTH EVERY DAY AT NIGHT 100 tablet 1 5 Active diltiaZEM CD (CARDIZEM CD) 360 mg 24 hr capsule TAKE 1 CAPSULE BY MOUTH EVERY DAY 90 capsule 3 5 Active ascorbic acid (VITAMIN C ORAL) Take 500 mg by mouth Active Active Problems Problem Noted Date Diagnosed Date Diastolic dysfunction 06/22/2025 Assessment & Plan (06/22/2025 1:37 PM CDT): Aftercare following right hip joint replacement surgery 04/14/2025 Hx of total hip arthroplasty, right 04/04/2025 Chronic bilateral low back pain without sciatica 10/30/2024 Primary osteoarthritis of right hip 10/30/2024 Assessment & Plan (06/22/2025 1:37 PM CDT): Assessment & Plan (03/24/2025 12:21 PM CDT): Chronic, persistent Likely low risk, but anesthesiology would need to be comfortable with her sodium levels while we await the complete workup. 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 11/2024 Constipation 06/30/2024 Assessment & Plan (10/22/2024 8:35 AM PROOFER): Chronic, variable symptoms Continue healthy diet changes Continue to follow with GI Assessment & Plan (06/30/2024 11:37 AM CDT): VSS, NAD, non acute abdomen Possibly likely due to constipation Fiber supplement, metamucil, incorporate fiber, physical activity Miralax x 7 days Dulcolax/colace stool softener Enema or suppository if no relief Magnesium citrate if no relief with above ER for fevers, vomiting, abdominal pain, bloody stools, Piriformis syndrome of right side 06/10/2024 Assessment & Plan (10/22/2024 8:48 AM PROOFER): Chronic, persistent Managed by pain management Continue supportive care Anxiety 10/02/2021 Assessment & Plan (10/22/2024 8:35 AM PROOFER): Chronic, persistent We discussed medication- declined We discussed therapy- she will consider Continue healthy habits for her mood Call for questions Assessment & Plan (10/07/2023 4:02 PM PROOFER): Chronic. Improved status post cardioversion. Monitor Assessment & Plan (10/03/2022 3:35 PM PROOFER): Chronic, improved She is doing well lifestyle changes Update me with an changes Assessment & Plan (10/02/2021 3:03 PM PROOFER): Patient reiterated no suicidal thoughts at this time; contact 911 and go to the ER if becomes suicidal We discussed medication- she will consider encouraged healthy diet encouraged patient to see a counselor use support structures you have in place try to work on healthy sleep habits If mood worsens or changes, please contact the office Anything emergent, to the er Encounter for Medicare annual wellness exam 06/2020 Overview (10/22/2024): Continue healthy changes Pt has POA/Living will Health Maintenance: 10/07/23 Last mammogram:05/12, 07/14- WNL Last DEXA: 10/13- low bone mass Last colonoscopy: 09/13- repeat in 3 years Last Tdap: 08/2018 Last pneumonia: up to date Last Shingrix: encouraged Last Flu: yearly Last COVID: up to date Assessment & Plan (10/22/2024 8:31 AM PROOFER): Continue healthy changes Pt has POA/Living will Health Maintenance: 10/07/23 Last mammogram:05/12, 07/14- WNL Last DEXA: 10/13- low bone mass Last colonoscopy: 09/13- repeat in 3 years Last Tdap: 08/2018 Last pneumonia: up to date Last Shingrix: encouraged Last Flu: yearly Last COVID: up to date Assessment & Plan (10/07/2023 3:59 PM PROOFER): Continue healthy changes Pt has POA/Living will Health Maintenance: 10/07/23 Last mammogram:04/2023- WNL Last DEXA: 2019, ordered Last colonoscopy: 08/01/21-repeat in 3 years Last Tdap: 08/2018 Last pneumonia: up to date Last Shingrix: encouraged Last Flu: yearly Last COVID: up to date- system does not have it updated Assessment & Plan (10/03/2022 3:30 PM PROOFER): Continue healthy changes Pt has POA/Living will Health Maintenance: Last mammogram:01/2022- WNL Last DEXA: today- results pending Last colonoscopy: 08/01/21-repeat in 3 years Last Tdap: 08/2018 Last pneumonia: up to date Last Shingrix: encouraged Last Flu: yearly Last COVID: up to date- system does not have it updated Assessment & Plan (10/02/2021 2:39 PM PROOFER): Continue healthy changes Health Maintenance: Last mammogram: scheduled Last DEXA: scheduled Last colonoscopy: 08/01/21-repeat in 3 years Last Tdap: 08/2018 Last pneumonia/Prevnar:up to date Last Shingrix: encouraged Last Flu: yearly Last COVID: up to date Assessment & Plan (09/28/2020 10:55 AM PROOFER): Work on healthy low carb diet Healthy activity Wear sun screen, seat belts Health Maintenance: Last mammogram: scheduled Last DEXA: 07/06/2019-low bone mass Last colonoscopy: within 5 years Last Tdap: 08/2018 Last pneumonia/Prevnar: Last Shingrix: encouraged Last Flu: yearly Lung nodule 03/07/2020 Assessment & Plan (10/22/2024 8:37 AM PROOFER): Chronic, no need for further imaging Assessment & Plan (10/07/2023 4:03 PM PROOFER): Last CT 05/09/2022. No further imaging needed. Assessment & Plan (10/03/2022 3:39 PM PROOFER): Chronic, stable Last CT in 04/2022 No further imaging needed Assessment & Plan (04/02/2022 3:28 PM CDT): Repeat CT ordered Assessment & Plan (10/02/2021 2:07 PM PROOFER): Repeat CT scan in March 2022 Assessment & Plan (05/02/2021 12:12 PM CDT): Stable Recheck in 1 year for 2 year stability Assessment & Plan (03/28/2021 9:16 AM CDT): Repeat CT chest ordered Assessment & Plan (09/28/2020 11:07 AM PROOFER): Recheck CT in 02/2021 Assessment & Plan (03/07/2020 1:10 PM CDT): We discussed rechecking in March-Jun- will check in March 2020 because of her history of smoking, family history of lung cancer Renal cyst 03/07/2020 Assessment & Plan (10/22/2024 8:51 AM PROOFER): Chronic, benign appearing Will check us Assessment & Plan (10/07/2023 4:06 PM PROOFER): CT from 04/09/2021: Grossly stable subcentimeter lesion in the lateral interpolar region of the left kidney containing macroscopic fat, and 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 No definite evidence of a suspicious enhancing renal lesion. - likely no further imaging needed, will discuss with Dr. 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 Consider follow up imaging next year Assessment & Plan (04/02/2022 3:28 PM CDT): Reviewed studies- likely benign Repeat us in the winter Assessment & Plan (10/02/2021 2:51 PM PROOFER): Stable Continue to monitor Assessment & Plan (03/28/2021 9:17 AM CDT): Likely angiolipoma Will recheck CT abdomen for stability Assessment & Plan (09/28/2020 12:42 PM PROOFER): Consider recheck with us in 1 year Assessment & Plan (03/07/2020 1:11 PM CDT): Will check ultrasound of her kidney Mild cardiomegaly 03/07/2020 Assessment & Plan (03/24/2025 12:21 PM CDT): Assessment & Plan (10/22/2024 8:38 AM PROOFER): Chronic, stable Managed by cardiology Continue blood pressure management Assessment & Plan (04/17/2024 9:27 AM CDT): Chronic, stable Continue blood pressure control Assessment & Plan (10/07/2023 4:01 PM PROOFER): Chronic. Continue to follow with Cardiology Assessment & Plan (10/03/2022 3:40 PM PROOFER): Chronic, stable Continue to follow with cardiology Assessment & Plan (10/02/2021 2:07 PM PROOFER): Continue to follow with Cardiology Assessment & Plan (04/12/2020 1:53 PM CDT): Normal LV size. RV size mild borderline enlarged. No additional treatment. Assessment & Plan (03/07/2020 1:12 PM CDT): She will touch base with cardiology Update me after the visit Bilateral hip joint arthritis 03/07/2020 Assessment & Plan (10/22/2024 8:35 AM PROOFER): Chronic, stable Continue home PT exercises Continue to monitor her symptoms Assessment & Plan (10/07/2023 4:02 PM PROOFER): Chronic. Inproved. Use Tylenol as needed. Assessment & Plan (10/03/2022 3:35 PM PROOFER): Chronic stable Continue to follow with ortho as needed Continue supportive care Assessment & Plan (10/02/2021 2:48 PM PROOFER): Will have her do a trial of flexeril at night Continue tylenol If no improvement, will do a trial of tramadol as needed Consider CBD oil as needed Keep appointment with ortho Continue supportive care Assessment & Plan (05/02/2021 12:13 PM CDT): Continue physical therapy/home exercises If symptoms return or worsen, we can get her in with Orthopedics Update me with any changes Call for questions Assessment & Plan (09/28/2020 11:04 AM PROOFER): Continue supportive care Assessment & Plan (03/07/2020 1:13 PM CDT): Tylenol for pain as needed Stay active Consider ortho if it worsens Call for questions or concerns Hyponatremia 02/10/2020 Assessment & Plan (06/22/2025 1:37 PM CDT): Assessment & Plan (03/24/2025 12:21 PM CDT): Orders: Basic metabolic panel; Future Assessment & Plan (10/22/2024 8:36 AM PROOFER): Chronic, persistent Previously followed by endocrine without a source Labs ordered for follow up Encouraged to consider endocrine referral for follow up Assessment & Plan (04/17/2024 9:27 AM CDT): Chronic, persistent Referral to endo placed Continue to monitor Assessment & Plan (03/12/2024 9:24 AM CDT): Chronic, persistent Not on a diuretic Previous notes from endo reviewed Follow up labs ordered Referral to endo placed Assessment & Plan (10/07/2023 4:02 PM PROOFER): Chronic. Improving. Monitor Assessment & Plan (10/03/2022 3:38 PM PROOFER): Chronic Consider f/u with endocrine- she does want to hold off Continue to monitor Assessment & Plan (04/02/2022 3:24 PM CDT): Resolved on last labs Assessment & Plan (10/02/2021 2:07 PM PROOFER): Stable Continue to monitor Assessment & Plan (05/02/2021 12:12 PM CDT): Stable We discussed a referral to Endocrine for further evaluation, at this time she does want to monitor it Will recheck in 6 months Update me with any changes Call for questions Assessment & Plan (03/28/2021 12:57 PM CDT): Endocrinology notes reviewed Previous labs reviewed Will check CT chest Update me with any changes Call for questions or concerns Assessment & Plan (09/28/2020 11:06 AM PROOFER): Will recheck Consider follow up with endo Call for questions or concerns Assessment & Plan (02/10/2020 11:22 AM CDT): Improving off diuretic Will recheck in 2 months Anticoagulation management encounter 03/31/2019 Assessment & Plan (10/02/2021 2:05 PM PROOFER): Stable on Eliquis Assessment & Plan (03/22/2021 10:14 AM CDT): Continue Eliquis 5 mg twice daily Assessment & Plan (09/28/2020 10:57 AM PROOFER): stable Assessment & Plan (09/20/2020 3:13 PM PROOFER): No bleeding. Continue Eliquis 5 mg twice daily Assessment & Plan (04/12/2020 1:54 PM CDT): Continue Eliquis 5 mg twice daily. Assessment & Plan (07/01/2019 10:12 AM CDT): Doing well on Eliquis. Assessment & Plan (03/31/2019 3:59 PM CDT): Continue Eliquis 5 mg b.i.d.. No bleeding. Acquired hypothyroidism 02/18/2019 Assessment & Plan (06/22/2025 1:37 PM CDT): Assessment & Plan (03/24/2025 12:21 PM CDT): Assessment & Plan (10/22/2024 8:33 AM PROOFER): Chronic, stable Continue levothyroxine Assessment & Plan (04/17/2024 9:26 AM CDT): Chronic, stable Continue current regimen Assessment & Plan (10/07/2023 3:58 PM PROOFER): Chronic. Stable. Continue levothyroxine. - repeat TSH ordered today Assessment & Plan (10/03/2022 3:34 PM PROOFER): Chronic, stable Continue current dose of levothyroxine Assessment & Plan (04/02/2022 3:24 PM CDT): Continue levothyroxine at current dose Assessment & Plan (10/02/2021 2:50 PM PROOFER): Continue current dose of synthroid Assessment & Plan (09/28/2020 11:07 AM PROOFER): Will recheck Assessment & Plan (02/10/2020 11:23 AM CDT): TSH at goal Continue current regimen Call for questions or concerns Assessment & Plan (02/18/2019 10:43 AM CDT): Labs ordered Continue current regimen Gastroesophageal reflux disease without esophagi tis 02/18/2019 Assessment & Plan (10/22/2024 8:37 AM PROOFER): Chronic, stable- off meds Continue to follow with GI Assessment & Plan (04/17/2024 9:27 AM CDT): Chronic, diet controlled Assessment & Plan (10/07/2023 4:02 PM PROOFER): Chronic. No recent flare-ups. Controlled with diet Assessment & Plan (10/03/2022 3:38 PM PROOFER): Chronic, stable She is on pepcid as needed- off omeprazole Update me with any changes Assessment & Plan (10/02/2021 2:06 PM PROOFER): Continue omeprazole as prescribed Assessment & Plan (09/28/2020 11:06 AM PROOFER): Continue to take pepcid as needed Assessment & Plan (06/05/2019 9:49 AM CDT): Continue pepcid Avoid triggers Stay hydrated Call for questions or concerns Assessment & Plan (02/18/2019 10:44 AM CDT): Continue pepcid Avoid triggers Mixed hyperlipidemia 02/18/2019 Assessment & Plan (03/24/2025 12:21 PM CDT): Chronic, stable Continue atorvastatin Assessment & Plan (10/22/2024 8:38 AM PROOFER): Chronic, stable Continue lipitor Assessment & Plan (04/17/2024 9:27 AM CDT): Chronic, stable Continue lipitor Assessment & Plan (03/12/2024 9:24 AM CDT): Chronic, stable Continue atorvastatin Assessment & Plan (10/07/2023 4:01 PM PROOFER): Chronic. Stable. Continue atorvastatin. Assessment & Plan (10/03/2022 3:40 PM PROOFER): Chronic, stable Continue lipitor Continue healthy changes Assessment & Plan (04/02/2022 3:25 PM CDT): Lipid panel normal Continue lipitor Assessment & Plan (10/02/2021 2:49 PM PROOFER): Continue lipitor Assessment & Plan (05/02/2021 12:13 PM CDT): Labs reviewed Continue current regimen Continue to follow with Cardiology Assessment & Plan (03/28/2021 12:57 PM CDT): Labs reviewed Continue current regimen Call for questions or concerns Assessment & Plan (03/22/2021 10:14 AM CDT): Continue Lipitor. Labs okay Assessment & Plan (09/28/2020 11:07 AM PROOFER): continue current regimen Assessment & Plan (04/12/2020 1:53 PM CDT): Continue Lipitor Assessment & Plan (02/10/2020 11:23 AM CDT): Lipids at goal Continue current regimen Assessment & Plan (06/05/2019 9:46 AM CDT): Continue current regimen Call for questions or concerns Assessment & Plan (02/18/2019 10:46 AM CDT): Labs ordered Continue current regimen Persistent atrial fibrillation 02/11/2019 Assessment & Plan (06/22/2025 1:37 PM CDT): Assessment & Plan (03/24/2025 12:21 PM CDT): Assessment & Plan (01/13/2025 12:05 PM CDT): Longstanding persistent atrial fibrillation, with mildly elevated ventricular rates and minimal symptoms. Occurring in the context of a largely structurally normal heart with low normal left ventricular systolic function and marked biatrial dilatation. Given the very longstanding persistent atrial of atrial fibrillation and marked left atrial dilatation evident on imaging, long-term sinus rhythm maintenance is likely to be very difficult to achieve if not impossible. Although catheter ablation could be attempted, the efficacy of such a procedure is expected to be quite low. I would therefore not recommend catheter ablation in the absence of severe symptoms. We discussed primarily pharmacologic rate control versus AV node ablation and biventricular pacing for symptom control and definitive rate control. We discussed the relative merits of each approach, including risks and benefits of AV node and pacing. The patient would prefer to start with a conservative approach. I think this is reasonable. --Start metoprolol XL 25 mg daily --Continue diltiazem 360 mg daily --Check HR daily for 1 week and report rates for BB adjustment --Consider AVJ/FIRER WATERTENDER-P if rates cannot be adequately controlled or if medications are not tolerated Assessment & Plan (10/22/2024 8:40 AM PROOFER): Chronic, stable Managed by cardiology Continue current regimen Assessment & Plan (04/17/2024 9:28 AM CDT): Chronic, stable Continue eliquis, cardizen Assessment & Plan (03/12/2024 9:24 AM CDT): Chronic, stable Managed by cardiology Continue cardizem, eliquis Assessment & Plan (10/07/2023 4:02 PM PROOFER): Chronic. Status post cardioversion on 10/01/[address] Snyder that was partially successful - atrial flutter. She will also be on amiodarone for 30 days. Regular rate and rhythm on exam today. Continue to follow with Cardiology, follow-up with Dr. Morales in December, considering ablation. -continue diltiazem, Eliquis Assessment & Plan (10/03/2022 3:40 PM PROOFER): Chronic, stable Continue cardizem and eliquis Assessment & Plan (10/02/2021 2:50 PM PROOFER): Asymptomatic Continue to follow with cardiology Assessment & Plan (03/22/2021 10:13 AM CDT): Asymptomatic recurrence after cardioversion. Rate controlled. Continue diltiazem. Continue Eliquis Assessment & Plan (09/28/2020 12:48 PM PROOFER): Stable Continue current regimen Continue to follow with cardiology Assessment & Plan (09/20/2020 3:13 PM PROOFER): Early asymptomatic recurrence after cardioversion. Rate controlled. Continue diltiazem and Eliquis. Assessment & Plan (04/12/2020 1:53 PM CDT): Rate controlled. Continue diltiazem. Continue Eliquis. Assessment & Plan (06/05/2019 9:45 AM CDT): Continue to follow with Update me with any changes Call for questions or concerns Assessment & Plan (02/18/2019 10:43 AM CDT): Continue to follow with cardiology Update me with any concerns Call for questions or concerns Assessment & Plan (02/11/2019 11:46 AM CDT): Newly diagnosed went to hospital and she was in [place] several months ago. Some fatigue and had noted high resting heart rates in the 90s. Found to be in atrial fibrillation amlodipine switched to diltiazem began on Eliquis. Echocardiogram was normal. Has not missed any Eliquis since. States a little bit somnolent perhaps a little more of dyspnea on exertion. No chest pains. I talked to patient and in detail but AFib certainly appears persistent not paroxysmal I discussed cardioversion and recommended to proceed with this. She is quite hesitant very concerned about this even minor procedure did discuss that the AFib could recur and discussed and told her that long-term rate control and anticoagulation also reasonable. After some time to think patient now agreeable to cardioversion will likely schedule next week. Will get TFTs along with other pre admit labs. Essential hypertension 02/11/2019 Assessment & Plan (06/22/2025 1:37 PM CDT): Assessment & Plan (03/24/2025 12:21 PM CDT): Chronic, stable Continue current regimen Assessment & Plan (10/22/2024 8:36 AM PROOFER): Chronic, stable Continue her current regimen Assessment & Plan (06/23/2024 9:57 AM CDT): Bp recheck in office normal Pt will continue home BP checks while taking steroid and alert office if running high Assessment & Plan (04/17/2024 9:26 AM CDT): Chronic, stable Continue losartan, cardizem Assessment & Plan (03/12/2024 9:23 AM CDT): Chronic, stable Continue losartan Continue healthy changes Continue to follow with cardiology Assessment & Plan (10/07/2023 4:00 PM PROOFER): Chronic. Controlled. Continue diltiazem Assessment & Plan (10/03/2022 4:26 PM PROOFER): Chronic, blood pressure mildly elevated Will have her check her blood pressure at home and update us this week Update us with any questions or concerns Continue her current regimen for now Call for questions Assessment & Plan (04/02/2022 3:24 PM CDT): Blood pressure at goal Continue cardizem Continue to monitor Assessment & Plan (10/02/2021 2:06 PM PROOFER): Blood pressure under fair control Continue diltiazem Assessment & Plan (03/28/2021 12:57 PM CDT): Pressure well control Continue current regimen Call for questions or concerns Assessment & Plan (03/22/2021 10:13 AM CDT): Well controlled Assessment & Plan (09/28/2020 11:05 AM PROOFER): Blood pressure well controlled Continue current regimen Call for questions or concerns Assessment & Plan (09/20/2020 3:14 PM PROOFER): Well controlled Assessment & Plan (04/12/2020 1:53 PM CDT): Well controlled Assessment & Plan (02/10/2020 11:23 AM CDT): Blood pressure well controlled off the water pill Continue current regimen Call for questions or concerns Assessment & Plan (07/01/2019 10:12 AM CDT): Well controlled Assessment & Plan (06/05/2019 9:45 AM CDT): Stable Continue current regimen Continue working on healthy changes Call for questions or concerns Assessment & Plan (03/31/2019 3:59 PM CDT): . Well controlled. Continue current medications Assessment & Plan (02/18/2019 10:43 AM CDT): Hypertension is unchanged. Continue current treatment regimen. Blood pressure will be reassessed in 4 weeks. Assessment & Plan (02/11/2019 11:41 AM CDT): Blood pressure good on diltiazem. Norvasc and clonidine discontinued Pedal edema 02/14/2017 Assessment & Plan (10/22/2024 8:39 AM PROOFER): Recurrent Encouraged compression stocking Assessment & Plan (10/07/2023 4:01 PM PROOFER): Chronic. Stable. Monitor. Assessment & Plan (04/12/2020 1:53 PM CDT): Resolved. Continue low-salt diet PVCs (premature ventricular contractions) 2016 Assessment & Plan (10/22/2024 8:47 AM PROOFER): Chronic, stable Managed by cardiology Continue current regimen Assessment & Plan (04/17/2024 9:28 AM CDT): Chronic, stable Continue cardizem Assessment & Plan (10/07/2023 4:01 PM PROOFER): Chronic. Continue to follow with Cardiology. Continue diltiazem Assessment & Plan (10/03/2022 3:41 PM PROOFER): Chronic, stable Continue to follow with cardiology Assessment & Plan (10/02/2021 2:51 PM PROOFER): Continue to follow with cardiology Assessment & Plan (03/22/2021 10:12 AM CDT): Low burden. No indication for ablation. No syncope normal LV function Assessment & Plan (09/20/2020 3:13 PM PROOFER): Minimal burden. No syncope. LV function okay Assessment & Plan (03/31/2019 3:59 PM CDT): No syncope. No soon structural heart disease. Overall burden low. Rectocele 08/17/2014 Assessment & Plan (10/22/2024 8:49 AM PROOFER): Chronic, stable Managed by SALES PROGRAM MANAGER Assessment & Plan (10/07/2023 4:01 PM PROOFER): Chronic. Continue to follow with gynecology Assessment & Plan (10/03/2022 3:43 PM PROOFER): Chronic She is following with SALES PROGRAM MANAGER Update me with any changes Assessment & Plan (04/02/2022 3:25 PM CDT): Will refer to urogyn for further evaluation Assessment & Plan (10/02/2021 3:00 PM PROOFER): Has followed with SALES PROGRAM MANAGER in the past Resolved Problems Problem Noted Date Diagnosed Date Resolved Date Abnormal CT of the abdomen 05/02/2021 1 12/04/2021 Overview (05/02/2021): Will refer to GI for further guidance Update me with any concerns Update me after the visit Assessment & Plan (10/03/2022 3:33 PM PROOFER): Colonoscopy completed Continue to follow with Dr Austin Herrera 03/07/2020 09/28/2020 Assessment & Plan (03/07/2020 1:20 PM CDT): Will start albuterol to use as needed Call for questions or concerns Closed fracture of multiple ribs of left side with routine healing 02/10/2020 10/02/2021 Assessment & Plan (10/02/2021 2:48 PM PROOFER): resolved Assessment & Plan (09/28/2020 11:05 AM PROOFER): Continue to monitor her symptoms Consider recheck in the new year Assessment & Plan (02/10/2020 11:24 AM CDT): Xray ordered to look at healing Monitor symptoms Call for questions or concerns Vision changes 02/18/2019 09/28/2020 Assessment & Plan (02/18/2019 10:46 AM CDT): Referral to opthlomology placed To the er for any thing emergent Encounters Date Type Department Care Team Description 07/16/2025 11:15 AM CDT Office Visit [facility] [address] [facility] [address] [place] [phone] Kishore Hawthorne MD S/P total right hip arthroplasty, 04/01/2025 (Primary Dx) 06/29/2025 10:50 AM CDT - 06/29/2025 11:59 PM CDT Hospital Encounter [facility] Medical Office Bl 1 [facility] [address] [facility] [address] [place] [address] Screening mammogram for breast cancer Discharge Disposition: Discharge to home or self care 06/29/2025 10:00 AM CDT Lab [facility] [address] [place] [id number] Anemia, unspecified type 06/29/2025 Results Follow-Up [facility] [address] [phone] Mere John MD Screening Mammogram Bilateral W Raj 06/29/2025 Results Follow-Up [facility] [address] [phone] Mere John MD Iron profile w/ IBC, CBC with auto differential, Differential, auto 06/22/2025 10:45 AM CDT Office Visit [facility] [address] [phone] Mere John MD Primary osteoarthritis of right hip (Primary Dx); Leg wound, right, sequela; Hyponatremia; Diastolic dysfunction; Persistent atrial fibrillation (HCC); Essential hypertension; Acquired hypothyroidism; Fatigue, unspecified type; Anemia, unspecified type 06/18/2025 9:05 AM CDT Lab [facility] [address] [place] [phone] Need for hepatitis B screening test; Hyponatremia 06/18/2025 Results Follow-Up [facility] [address] [phone] Mere John MD Basic metabolic panel, eGFR, Hepatitis B surface antibody (immune status) Blood 06/17/2025 11:15 AM CDT Orders Only [facility] Medical Office Building 2 Wound Care [address] [facility] [address] [place] [address] 06/14/2025 3:15 PM CDT Office Visit [facility] [address] [facility] [address] [place] [phone] Kishore Hawthorne MD S/P total right hip arthroplasty, 04/01/2025 (Primary Dx) 06/03/2025 1:00 PM CDT Orders Only [facility] Office Building 2 Wound Care [address] [facility] [address] [place] [address] 05/28/2025 ACO Quality [facility] Accountable Care Organization [address] [place] [phone] Kristel Hannah MA 05/18/2025 3:30 PM CDT Orders Only [facility] Office Building 2 Wound Care [address] [facility] [address] [place] [address] 05/16/2025 Results Follow-Up [facility] Cardiology [address] [place] [address] [address] [facility] [place] [phone] Annita Snyder MD Pro B-type natriuretic peptide 05/15/2025 10:35 AM CDT Lab [facility] [address] [place] [address] Longstanding persistent atrial fibrillation (HCC); Essential hypertension; Edema, unspecified type 05/14/2025 11:00 AM CDT Office Visit [facility] [address] [facility] [address] [place] [phone] Julio César Leal MD Permanent atrial fibrillation (HCC) (Primary Dx) 05/14/2025 9:30 AM CDT Office Visit [facility] [address] [place] [phone] Kishore Hawthorne MD Aftercare following right hip joint replacement surgery (Primary Dx); S/P total right hip arthroplasty, 04/01/2025 05/14/2025 9:28 AM CDT - 05/14/2025 11:59 PM CDT Hospital Encounter [facility] Diag Imaging [address] [place] [address] Aftercare following right hip joint replacement surgery Discharge Disposition: Discharge to home or self care 05/14/2025 Documentation [facility] [address] [place] [phone] Yves Mendosa RN 05/14/2025 Telephone [facility] [address] [place] [phone] Kishore Hawthorne MD driving question 05/14/2025 Orders Only [facility] [address] [place] [phone] Julio César Leal MD Atrial fib/flutter, transient (HCC) (Primary Dx) 05/13/2025 Telephone [facility] [address] [place] [phone] Kishore Hawthorne MD home health 05/06/2025 2:15 PM CDT Office Visit [facility] [address] [place] [phone] Annita Snyder MD Longstanding persistent atrial fibrillation (HCC) (Primary Dx); Essential hypertension; Edema, unspecified type 05/04/2025 3:00 PM CDT Orders Only [facility] Medical Office Building 2 Wound Care [facility] [address] [place] [address] 05/03/2025 ACO Outreach [facility] Accountable Care Organization [address] [place] [address] Melinda Hall RN 04/30/2025 Telephone [facility] Medical Group Orthopedics and Sports Medicine [address] [facility] [address] [place] [phone] Kishore Hawthorne MD home health update R Hip 04/27/2025 11:15 AM CDT Orders Only [facility] Medical Office Building 2 Wound Care [address] [facility] [address] [place] [address] from Last 3 Months Immunizations Immunization Administration Dates Next Due Influenza, Quad, Adjuvantate d, Intramuscular 07/04/2023,07/26/2022,08/07/2021 Influenza, Quadrivalent, Hig h Dose, Preservative Free, Intrr 07/08/2020 Influenza, Quadrivalent, Spl it, Intramuscular 09/14/2015 Influenza, Quadrivalent, Spl it, Preservative Free, Intramuscular 10/12/2014 Influenza, Trivalent, High D ose, Split, Preservative Free, Intramuscular 09/04/2024,08/12/2019,08/20/2018,09/23 Influenza, Unspecified 06/22/2025(Deferr ed: Patient Refused),07/21/2024(Deferred: Patient decision),06/23/2024(Deferred: Patient decision),08/07/2021,07/08/2020 [employer] [facility] SARS-CoV-2 Monovalent Vaccination (12+ Yrs) PURPLE 01/23/2021,01/02/2021 Pneumococcal Conjugate PCV 13 09/14/2015 Pneumococcal Polysaccharide PPV23 10/02/2019 RSV, Bivalent, Protein Subun it Rsvpref, Diluent (Abrysvo) 03/15/2025 Tdap 09/03/2018,08/21/2018 Surgical History Surgery Date Site/Laterality Comments HYSTERECTOMY 10/21/1975 - 10/20/1976 total OOPHORECTOMY 10/21/1975 - 10/20/1976 Bilateral FLUORO GUIDED INJECTION HIP RIGHT 11/03/2024 Right BLADDER SUSPENSION SKIN CANCER EXCISION mulitple on face FOOT SURGERY Left took out bone spur/artificial joint CARDIOVERSION history of-unsuccessful. DId speak with EP doctor-opting not to do ablation at this time- not recommended- talking about other options CATARACT EXTRACTION W/ INTRAOCULAR LENS IMPLANT 10/21/2023 - 10/20/2024 TOTAL HIP ARTHROPLASTY 04/01/2025 Right Medical History Medical History Date Comments PVC (premature ventricular contraction) A-fib (HCC) Hypertension Closed fracture of multiple ribs of left side with routine healing 02/10/[address] of the abdomen 05/02/2021 Will refer to GI for further guidance Update me with any concerns Update me after the visit DDD (degenerative disc disea se), lumbar Lumbar facet arthropathy 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 Rhinitis, allergic Dental crowns present Pain, hip 03/19/2025 right hip pain, arthritis, pain & difficulty with walking- no cane at this time, limiting steps now, joint replacement scheduled for 04/01/25, hx cortizone injections in past Family History Medical History Relation Name Comments Cancer Father Breast cancer Maternal Grandmother Cancer Other Relation Name Status Comments Father Maternal Grandmother Other Social History Tobacco Use Types Packs/Day Years Used Date Smoking Tobacco: Former Cigarettes 0 10/21/1960 - 10/21/1980 Smokeless Tobacco: Never Tobacco Cessation:Counseling Given: Not Answered Alcohol Use Standard Drinks/Week Comments Yes 2 (1 standard drink = 0.6 oz pur e alcohol) [facility] Utilities Answer Date Recorded In the past 12 months has [employer], gas, oil, or water [employer] threatened to shut off services in your home? No 04/02/2025 Social Connection and Isolation Panel Answer Date Recorded In a typical week, how many times do you talk on the phone with family, friends, or neighbors? More than three times a week 04/02/2025 How often do you get togethe r with friends or relatives? More than three times a week 04/02/2025 How often do you attend [facility] or mu-ism services? More than 4 times per year 04/02/2025 Do you belong to any clubs o r organizations such as druze groups, unions, fraternal or athletic groups, or school groups? Yes 04/02/2025 How often do you attend meet ings of the clubs or organizations you belong to? More than 4 times per year 04/02/2025 Are you , , di vorced, , never , or living with a partner? 04/02/2025 Overall Financial Resource Strain (CARDIA) Answe r Date Recorded How hard is it for you to pa y for the very basics like food, housing, medical care, and heating? Not hard at all 04/02/2025 PHQ-2 Answer Date Recorded PHQ-2 Total Score (If total score is 3 or more points, staff should administer the PHQ-9) 0 06/22/2025 Hunger Vital Sign Answer Date Recorded Within the past 12 months, y ou worried that your food would run out before you got the money to buy more. Never true 04/02/20 25 Within the past 12 months, t he food you bought just didn't last and you didn't have money to get more. Never true 04/02/2025 PRAPARE - Transportation Answer Date Re corded In the past 12 months, has l ack of transportation kept you from medical appointments or from getting medications? No 03/21 In the past 12 months, has l ack of transportation kept you from meetings, work, or from getting things needed for daily living? No 04/02/2025 PHQ-9 Answer Date Recorded PHQ-9 Total Score 0 10/22/2024 Housing Stability Vital Sign Answer Derrick e Recorded In the last 12 months, was t here a time when you were not able to pay the mortgage or rent on time? No 04/02/2025 In the past 12 months, how m any times have you moved where you were living? 0 04/02/2025 At any time in the past 12 [facility], were you homeless or living in a custodial (including now)? No 04/02/2025 AUDIT-C Answer Date Recorded Q1: How often do you have a drink containing alc ohol? 2-3 times a week 06/22/2025 Q2: How many drinks containi ng alcohol do you have on a typical day when you are drinking? 1 or 2 06/22/2025 Q3: How often do you have si x or more drinks on one occasion? Never 06/22/2025 Personal Safety Answer Date Recorded Have you ever been in or are you currently in a harmful physical or emotional relationship or is someone making you feel afraid or unsafe? Denies 04/01/2025 Comments No Sex and Gender Information Value Date Recorded Sex Assigned at Not on file Legal Sex Female 3:27 AM PROOFER Gender Identity Female 07/12/2020 8:51 AM CDT Sexual Orientation Not on file Obstetrics History Para Term AB IAB SAB Ectopic Multiple Livin g Live Births 3 3 3 Date Outcome GA Total Labor Labor/3rd Weight Sex Type Anes PTL Paige A1 A5 Name Clin Term Term Term Last Filed Vital Signs Vital Sign Reading Time Taken Comments Blood Pressure 112/60 06/22/2025 10:32 AM CDT Pulse 80 06/22/2025 10:32 AM CDT Temperature 36.6 C (97.8 F) 06/22/2025 10:32 AM CDT Respiratory Rate 14 06/22/2025 10:32 AM CDT Oxygen Saturation 97% 06/22/2025 10:32 AM CDT Inhaled Oxygen Concentration - - Weight 62.1 kg (137 lb) 07/16/2025 11:08 AM CDT Height 162.6 cm (5' 4) 07/16/2025 11:08 AM CDT Body Mass Index 23.52 07/16/2025 11:08 AM CDT Plan of Treatment Health Maintenance Due Date Last Done Comments Hepatitis B Screening 1963 Zoster Vaccine (1 of 2) 1995 Covid-19 Vaccine (2023-2 5 season) 2025 09/04/2024, 08/17/2023, 10/01/2022, Additional history exists Influenza Vaccine (#1) 2025 , 07/04/2023, 07/26/2022, Additional history exists Well Visit 65+ 10/22/2025 10/22/2024, 09/20, 10/03/2022, Additional history exists Fall Risk Assessment 04/05/2026 04/05/2025, 10/22/2024, 10/07/2023, Additional history exists Depression Screening 06/22/2026 06/22/2025, 03/24/2025, 01/07/2025, Additional history exists Osteoporosis Screening-Bone Density Scan 10/05/2026 10/05/2024, 10/03/2022, 07/06/2019, Additional history exists DTaP/Tdap/Td Vaccine (3 - Td or Tdap) 09/03/2028 09/03/2018, 08/21/2018 Pneumococcal vaccine 65+ Completed 10/02/2019, 08/22 Hepatitis C Screening Completed 10/03/2020 Colon Cancer Screening-CT Colonography Discontinued 08/25/2024, 10/10/2017 Colon Cancer Screening-Colonoscopy Discontinued 08/25/2024, 10/10/2017 Colon Cancer Screening-DNA Stool Discontinued 08/25/20 24, 10/10/2017 Colon Cancer Screening-FIT Discontinued 08/25/2024, Colon Cancer Screening-FOBT Discontinued 08/25/2024, 1 12/11/2016 Colon Cancer Screening-Sigmoidoscopy Discontinued 08/25/2024, 10/10/2017 Colorectal Cancer Screening Discontinued Breast Cancer Screening-Mammogram Discontinued 06/29/2025, 06/24/2024, 05/01/2023, Additional history exists Goals Goal Patient Goal Type Associated Problems Recent Progress Patient-Stated? Author Autogenera erik Goal Care Plan Autogenerated Problem No Theresa Medrano MA Medical Devices Implanted Type Area Recruiter Coordinator Device Identifier Shelf Expiration Date Model / Serial / Lot [employer]Ortho R3 50mm 3 Hole Hip Shell Acetabular [id number] - [id number] Implanted:Qty : 1 on 04/01/2025 by Kishore Hawthorne MD at [facility] Other - see comments Right: Hip [employer]O rtho [id number] 07/21/2034 [id number] / / [id number] [employer] /Ortho Liner Acetabular Hip R3 Xlpe 20 Degree [id number] Sterile Lf [id number] - [id number] Implanted:Qty : 1 on 04/01/2025 by Kishore Hawthorne MD at [facility] Other - see comments Right: Hip [employer] rtho [id number] 12/07/2034 [id number] / / [id number] [employer] /Ortho Polarstem Cementless Hip 2 Standard Stem Femoral Titanium Sandoval [id number] - [id number] Implanted:Qty : 1 on 04/01/2025 by Kishore Hawthorne MD at [facility] Other - see comments Right: Hip [employer] r[employer]o [id number] 06/02/2031 [id number] / / [id number] [employer] /Ortho 36mm Hip +0mm 10/03 Head Femoral Oxinium [id number] - [id number] Implanted:Qty : 1 on 04/01/2025 by Kishore Hawthorne MD at [facility] Other - see comments Right: Hip [employer]o [id number] 01/24/2035 [id number] / / [id number] Procedures Procedure Name Priority Date/Time Associated Diagnosis Comments SCREENING MAMMOGRAM BILATERAL W RAJ Schedule Routine, Read Routine (OP Routine) 06/29/2025 11:22 AM CDT Screening mammogram for breast cancer DIFFERENTIAL AUTO Routine 06/29/2025 10:15 AM CDT Anemia, unspecified type CBC WITH AUTO DIFFERENTIAL Routine 06/29/2025 10:15 AM CDT Anemia, unspecified type IRON PROFILE W/ IBC Routine 06/29/2025 10:15 AM CDT Anemia, unspecified type EGFR Routine 06/18/2025 9:14 AM CDT Hyponatremia BASIC METABOLIC PANEL Routine 06/18/2025 9:14 AM CDT Hyponatremia HEPATITIS B SURFACE ANTIBODY (IMMUNE STATUS) Routine 06/18/2025 9:14 AM CDT Need for hepatitis B screening test EGFR Routine 05/15/2025 10:46 AM CDT Longstanding persistent atrial fibrillation (HCC) Essential hypertension Edema, unspecified type PRO B-TYPE NATRIURETIC PEPTIDE Routine 05/15/2025 10:46 AM CDT Longstanding persistent atrial fibrillation (HCC) Essential hypertension Edema, unspecified type BASIC METABOLIC PANEL Routine 05/15/2025 10:46 AM CDT Longstanding persistent atrial fibrillation (HCC) Essential hypertension Edema, unspecified type XR HIP RIGHT 2 OR 3 VIEWS Schedule Routine, Read Routine (OP Routine) 05/14/2025 9:34 AM CDT Aftercare following right hip joint replacement surgery ECG 12-LEAD Routine 05/06/2025 2:10 PM CDT Longstanding persistent atrial fibrillation (HCC) DEXA AXIAL SKELETON BONE DENSITY 1 OR MORE SITES Schedule Routine, Read Routine (OP Routine) 10/05/2024 1:37 PM PROOFER Encounter for osteoporosis screening in asymptomatic postmenopausal patient HM COLONOSCOPY Routine 08/25/2024 HEPATITIS C ANTIBODY Routine 10/03/2020 1:28 PM PROOFER Need for hepatitis C screening test from Last 3 Months or Most Recently Relevant to Health Maintenance Results * Screening Mammogram Bilateral W Raj (06/29/2025 11:22 AM CDT) Anatomical Region Laterality Modality Breast Bilateral Mammography Impressions 06/29/2025 11:31 AM CDT Bilateral No evidence of malignancy in either breast. OVERALL BI-RADS FINAL ASSESSMENT: 1 - Negative RECOMMENDATION: Recommend bilateral annual screening mammography. Narrative 06/29/2025 11:31 AM CDT EXAMINATION: Screening Mammogram Bilateral W Raj: 06/29/2025 COMPARISON: Relevant prior studies available at the time of interpretation were reviewed, including the most recent mammogram on: 06/24/2024. TECHNIQUE: Mammography was performed with 2D and 3D digital breast tomosynthesis (DBT) images. CAD was utilized. BREAST PARENCHYMAL COMPOSITION: There are scattered areas of fibroglandular density. FINDINGS: Bilateral There is no suspicious mass, calcification, or architectural distortion in either breast. us Mere John MD IMG MAMMO PROCEDURE S Final Result * Differential, auto (06/29/2025 10:15 AM CDT) Neutrophil abs 2.72 1.50 - 6.50 K/cumm Comment:Testing performed by : [address], [place]., [address] Imm gran abs 0.02 0.00 - 0.10 K/cumm [facility] Comment:Testing performed by : [address], [place]., [address] Lymphocyte abs 1.24 0.80 - 3.30 K/cumm [facility] Comment:Testing performed by : [address], [place]., [address] Monocyte abs 0.71 0.20 - 0.80 K/cumm [facility] Comment:Testing performed by : [address] [address] Eosinophil abs 0.09 0.00 - 0.50 K/cumm [facility] Comment:Testing performed by : [address] [address] Basophil abs 0.05 0.00 - 0.10 K/cumm [facility] Comment:Testing performed by : [address] [address] Neutrophil pct 56.3 % [facility] Comment: Interpretive Data Percent cell count reference ranges are not reported, since discordance with absolute values may lead to misinterpretation of CBC data. Current Interpretive Data was last revised on 2018. Testing performed by: [address] [address] Imm gran pct 0.4 % [facility] Comment: Interpretive Data Percent cell count reference ranges are not reported, since discordance with absolute values may lead to misinterpretation of CBC data. Current Interpretive Data was last revised on 2018. Testing performed by: [address] [address] Lymphocyte pct 25.7 % [facility] Comment: Interpretive Data Percent cell count reference ranges are not reported, since discordance with absolute values may lead to misinterpretation of CBC data. Current Interpretive Data was last revised on 2018. Testing performed by: [address] [address] Monocyte pct 14.7 % [facility] Comment: Interpretive Data Percent cell count reference ranges are not reported, since discordance with absolute values may lead to misinterpretation of CBC data. Current Interpretive Data was last revised on 2018. Testing performed by: [address] [address] Eosinophil pct 1.9 % [facility] Comment: Interpretive Data Percent cell count reference ranges are not reported, since discordance with absolute values may lead to misinterpretation of CBC data. Current Interpretive Data was last revised on 2018. Testing performed by: [address] [address] Basophil pct 1.0 % [facility] Comment: Interpretive Data Percent cell count reference ranges are not reported, since discordance with absolute values may lead to misinterpretation of CBC data. Current Interpretive Data was last revised on 2018. Testing performed by: [address] [address] Blood 06/29/2025 10:1 5 AM CDT 06/29/2025 10:20 AM CDT us Mere John MD LAB BLOOD ORDERABLE S Final Result [facility] [address] [facility] Department of Laboratories [place], [place] [id number] * Iron profile w/ IBC (06/29/2025 10:15 AM CDT) Iron 68 35 - 145 mcg/dL Comment:Testing performed by : [address] [address] TIBC 285 250 - 400 mcg/dL [facility] Comment:Testing performed by : [address] [address] Transferrin saturation 24 20 - 50 % [facility] Comment:Testing performed by : [address] [address] Blood 06/29/2025 10:1 5 AM CDT 06/29/2025 10:20 AM CDT us Mere John MD LAB BLOOD ORDERABLE S Final Result [facility] [address] [facility] Department [place] [address] * (ABNORMAL) CBC with auto differential (06/29/2025 10:15 AM CDT) WBC 4.83 3.80 - 9.90 K/cumm Comment:Testing performed by : [address] [address] Hgb 12.8 11.9 - 15.5 g/dL [facility] Comment:Testing performed by : [address] [address] Hct 37.9 35.6 - 45.5 % [facility] Comment:Testing performed by : [address] [address] Plt 219 150 - 400 K/cumm [facility] Comment:Testing performed by : [address] [address] MPV 9.5 9.1 - 12.3 fL [facility] Comment:Testing performed by : [address] [address] RBC 4.24 3.90 - 5.20 M/cumm [facility] Comment:Testing performed by : [address] [address] MCV 89.4 81.3 - 96.4 fL [facility] Comment:Testing performed by : [address] [address] MCH 30.2 27.1 - 33.3 pg [facility] Comment:Testing performed by : [address] [address] MCHC 33.8 32.3 - 35.7 g/dL [facility] Comment:Testing performed by : [facility], [address] [place] [address]., [address] RDW CV 14.7 11.1 - 14.9 % [facility] Comment:Testing performed by : [address] [address] RDW SD 48.5(H) 35.7 - 48.1 fL [facility] Comment:Testing performed by : [address] [address] NRBC abs 0.00 0.00 - 0.01 K/cumm [facility] Comment:Testing performed by : [facility], [address] [place] [address]., [id number] Blood 06/29/2025 10:1 5 AM CDT 06/29/2025 10:20 AM CDT us Mere John MD LAB BLOOD ORDERABLE S Final Result [facility] [address] [facility] Department [place] [address] * eGFR (06/18/2025 9:14 AM CDT) eGFR >90 >=60 mL/min/1. 73 m2 Comment: Interpretive Data Reference Interval Normal >/= 90 mL/min/1.73m2 Mildly decreased* 60 - 89 mL/min/1.73m2 Mildly to moderately decreased 45 - 59 mL/min/1.73m2 Moderately to severely decreased 30 - 44 mL/min/1.73m2 Severely decreased 15 - 29 mL/min/1.73m2 Kidney Failure < 15 mL/min/1.73m2 *Relative to young adult level Estimated glomerular filtration rate is determined by the 2020 CKD-EPI equation recommended by the National Kid[employer] (A Unifying Approach to GFR Estimation: Recommendations of the NKF-ASK Task Force on Reassessing the Inclusion of Race in Diagnosing Kidney Disease, JASN 2020). The CKD-EPI equation should not be used for patients with unstable renal function and has not been validated in children and those over 70. Current interpretive data was last reviewed 2021. Testing performed by: [address] [address] Blood 06/18/2025 9:14 AM CDT 06/18/2025 9:48 AM CDT Mere John MD LAB BLOOD ORDERABLE S Final Result Performing Organization Address [facility] [facility] Co de Phone Number [facility] [address] [facility] [place] [address] * Hepatitis B surface antibody (immune status) Blood (06/18/2025 9:14 AM CDT) HBsAb (immune status) Nonreactive Comment: Interpretive Data Nonreactive: This result is consistent with a lack of immunity to Hepatitis B Virus when used in the setting of routine screening. Equivocal: The immune status of the individual should be further assessed, if appropriate, after consideration of clinical status, risk factors, and additional diagnostic information. Reactive: This result is consistent with immunity to Hepatitis B Virus when used in the setting of routine screening. Current interpretive data was last revised on 20. Blood 06/18/2025 9:14 AM CDT 06/18/2025 12:32 PM CDT us Mere John MD LAB MICROBIOLOGY - GENERAL ORDERABLES Final Result Performing Organization Address [facility] Co de Phone Number [facility] [address] [facility] Department [place] [address] * (ABNORMAL) Basic metabolic panel (06/18/2025 9:14 AM CDT) Sodium 130(L) 135 - 145 mmol/L Comment:Testing performed by : [address] [address] Potassium, pl 4.9 3.3 - 4.9 mmol/L NEHA MENDOZA Comment:Testing performed by : [address] [address] Chloride 93(L) 97 - 110 mmol/L NEHA MENDOZA Comment:Testing performed by : [address] [address] CO2 23 22 - 32 mmol/L NEHA Comment:Testing performed by : [address] [address] Anion gap 14 2 - 15 mmol/L NEHA Comment:Testing performed by : [address] [address] BUN 9 6 - 25 mg/dL NEHA Comment:Testing performed by : [address] [address] Creatinine 0.55(L) 0.60 - 1.10 mg/dL NEHA Comment:Testing performed by : [address] [address] Glucose 111 70 - 199 mg/dL NEHA Comment: Interpretive Data Fasting glucose >/= 126 mg/dl is diagnostic for diabetes. Fasting is defined as no caloric intake for at least 8 hours. Fasting glucose between 100 mg/dl to 125 mg/dl is diagnostic of prediabetes. In a patient with classic symptoms of hyperglycemia or hyperglycemic crisis, a random glucose >/= 200 mg/dl is diagnostic for diabetes. In the absence of unequivocal hyperglycemia, results should be confirmed by repeat testing. The classification and Diagnosis of Diabetes Diabetes Care 202; 46: S19-S40. Current interpretive data was last revised 2022. Testing performed by: [address] [address] Calcium 10.1 8.5 - 10.3 mg/dL NEHA Comment:Testing performed by : [address] [address] Blood 06/18/2025 9:14 AM CDT 06/18/2025 9:48 AM CDT us Mere John MD LAB BLOOD ORDERABLE S Final Result NEHA [address] [facility] Department of Laboratories [place], [place] [id number] * eGFR (05/15/2025 10:46 AM CDT) eGFR >90 >=60 mL/min/1. 73 m2 Comment: Interpretive Data Reference Interval Normal >/= 90 mL/min/1.73m2 Mildly decreased* 60 - 89 mL/min/1.73m2 Mildly to moderately decreased 45 - 59 mL/min/1.73m2 Moderately to severely decreased 30 - 44 mL/min/1.73m2 Severely decreased 15 - 29 mL/min/1.73m2 Kidney Failure < 15 mL/min/1.73m2 *Relative to young adult level Estimated glomerular filtration rate is determined by the 2020 CKD-EPI equation recommended by the National Kidney Foundation (A Unifying Approach to GFR Estimation: Recommendations of the NKF-ASK Task Force on Reassessing the Inclusion of Race in Diagnosing Kidney Disease, JASN 2020). The CKD-EPI equation should not be used for patients with unstable renal function and has not been validated in children and those over 70. Current interpretive data was last reviewed 2021. Testing performed by: [facility], [address] [place] [address]., [address] Blood 05/15/2025 10:4 6 AM CDT 05/15/2025 12:34 PM CDT Annita Snyder MD LAB BLOOD ORDERABL ES Final Result [facility] [address] [facility] [place] [address] * (ABNORMAL) Pro B-type natriuretic peptide (05/15/2025 10:46 AM CDT) NT-proBNP 846(H) <=450 pg/mL Comment: Interpretive Comments: A. Dyspnea in Acute Care Setting All Ages: < 300 pg/ml, acute heart failure unlikely. < 50 yrs: 300 - 450 pg/ml, further investigation warranted. > 450 pg/ml, acute heart failure likely. 50 - 74 yrs: 300 - 900 pg/ml, further investigation warranted. > 900 pg/ml, acute heart failure likely . > or = 75 yrs: 450 - 1800 pg/ml, further investigation warranted. > 1800 pg/ml, acute heart failure likely. B. Non-acute Setting < 75 yrs < 125 pg/ml, rules out heart failure. > or = 125 pg/ml, further investigation warranted. > or = 75 yrs < 450 pg/ml, rules out heart failure. > or = 450 pg/ml, further investigation warranted. - Knowledge of each individual patient's NT-proBNP range may be more useful than using similar cut-points for every patient. Please note that marked elevations in NT-proBNP levels may be observed in state other than Left Ventricular Congestive Failure, including: acute coronary syndromes, right heart strain/failure (including pulmonary embolism and cor pulmonale), critical illness, renal failure, as well as advanced age. - References: 1. Gifty JUNIOR et.al. Eur Heart J. 2006:27:330-337. 2. Anabela GUTIERREZ, Natalya BRO. J. AM [place] Cardiol: Cardiovasc Imag. 2009;2: 216- 225. Interpretive Data Last Revised Date: 2018. Testing performed by: [address] [address] Blood 05/15/2025 10:4 6 AM CDT 05/15/2025 12:28 PM CDT Annita Snyder MD LAB BLOOD ORDERABL ES Final Result NEHA [address] [facility] Department of Laboratories [place], [place] [id number] * (ABNORMAL) Basic metabolic panel (05/15/2025 10:46 AM CDT) Sodium 128(L) 135 - 145 mmol/L Comment:Testing performed by : [address] [address] Potassium, pl 4.3 3.3 - 4.9 mmol/L NEHA MENDOZA Comment:Testing performed by : [address] [address] Chloride 91(L) 97 - 110 mmol/L NEHA MENDOZA Comment:Testing performed by : [address] [address] CO2 27 22 - 32 mmol/L NEHA MENDOZA Comment:Testing performed by : [address] [address] Anion gap 10 2 - 15 mmol/L NEHA Comment:Testing performed by : [address] [address] BUN 11 6 - 25 mg/dL NEHA Comment:Testing performed by : [address] [address] Creatinine 0.50(L) 0.60 - 1.10 mg/dL NEHA Comment:Testing performed by : [address] [address] Glucose 75 70 - 199 mg/dL NEHA Comment: Interpretive Data Fasting glucose >/= 126 mg/dl is diagnostic for diabetes. Fasting is defined as no caloric intake for at least 8 hours. Fasting glucose between 100 mg/dl to 125 mg/dl is diagnostic of prediabetes. In a patient with classic symptoms of hyperglycemia or hyperglycemic crisis, a random glucose >/= 200 mg/dl is diagnostic for diabetes. In the absence of unequivocal hyperglycemia, results should be confirmed by repeat testing. The classification and Diagnosis of Diabetes Diabetes Care 202; 46: S19-S40. Current interpretive data was last revised 2022. Testing performed by: [address] [address] Calcium 9.4 8.5 - 10.3 mg/dL NEHA Comment:Testing performed by : [address] [address] Blood 05/15/2025 10:4 6 AM CDT 05/15/2025 12:28 PM CDT us Annita Snyder MD LAB BLOOD ORDERABL ES Final Result NEHA MENDOZA [address] [facility] Department of Laboratories [place], [place] [id number] * XR Hip Right 2 or 3 Views (05/14/2025 9:34 AM CDT) Anatomical Region Laterality Modality Lower Extremities, Hip, Pelvis Right C omputed Radiography 05/21/2025 9:59 PM CDT Narrative 05/21/2025 10:01 PM CDT EXAM DESCRIPTION: 1. XR HIP RIGHT 2 OR 3 VIEWS REASON FOR STUDY: pain Swelling and pain down rt leg since RT THR 04/01/25 FINDINGS: Two views submitted with comparison 04/16/2025. Right total hip arthroplasty is in near anatomic alignment. No acute fracture. Inferior lumbar degenerative disc disease is present. Pessary device is present. IMPRESSION: 1. Right total hip arthroplasty in near anatomic alignment. THIS IS AN ELECTRONICALLY VERIFIED FINAL REPORT 05/21/2025 10:01 PM - Electronically signed by Eddie Clay M.D. T: Report ID: [id number] Reading Location: [place] [address] Procedure Note Eddie Clay MD - 05/21/2025 EXAM DESCRIPTION: 1. XR HIP RIGHT 2 OR 3 VIEWS REASON FOR STUDY: pain Swelling and pain down rt leg since RT THR 04/01/25 FINDINGS: Two views submitted with comparison 04/16/2025. Right total hip arthroplasty is in near anatomic alignment. No acute fracture. Inferior lumbar degenerative disc disease is present. Pessary device is present. IMPRESSION: 1. Right total hip arthroplasty in near anatomic alignment. THIS IS AN ELECTRONICALLY VERIFIED FINAL REPORT 05/21/2025 10:01 PM - Electronically signed by Eddie Clay M.D. T: Report ID: [id number] Reading Location: [place] [address] us Kishore Hawthorne MD IMG XR PROCEDURES Saniya l Result * ECG 12 lead (05/06/2025 2:10 PM CDT) Annita Snyder MD ECG ORDERABLES Fi nal Result * Dexa Axial Skeleton Bone Density 1 Or 2 Site (10/05/2024 1:37 PM PROOFER) Anatomical Region Laterality Modality Body N/A Mammography 10/05/2024 1:59 PM PROOFER Narrative 10/05/2024 2:00 PM PROOFER EXAM DESCRIPTION: DEXA AXIAL SKELETON BONE DENSITY 1 OR MORE SITES REASON FOR STUDY: 79 y/o year old F with given history of: Post menopausal status. History of prior fracture. Patient has taken/is taking vitamin-D, calcium, Actonel and hormone replacement therapy. 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 LEFT HIP: Total BMD is 0.741 g/cm2 T-score is -1.6 This is a 2.4% decrease in comparison to prior exam which is not statistically significant. Femoral neck BMD is 0.606 g/cm2 T-score is -2.2 FRAX: 10 year risk for a major osteoporotic fracture is 22 %, 10 year risk for a hip fracture is 6.3 % IMPRESSION: Low bone mass REFERENCE: Bone mineral density: T-Score: Normal (T-score above or = -1.0) Low bone mass (T-score between -1.0 and -2.5) replaces the previously used term osteopenia Osteoporosis (T-score = or below -2.5) Z-Score: Within the expected range for age (Z-score above -2.0) Below the expected range for age (Z-score is -2.0 or below) Please see below follow up recommendations. Medical evaluation for secondary causes of low bone mineral density may be appropriate. FRAX is a World Health Organization validated fracture risk assessment tool that calculates a person's 10 year probability of a major osteoporosis related fracture and hip fracture. According to the National Osteoporosis Foundation guidelines, postmenopausal women and men age 50 or older with low bone mass and a 10 year probability of a major osteoporosis related fracture = or greater than 20% or a 10 year probability of a hip fracture = or greater than 3% should be considered for pharmacological treatment for the prevention of osteoporosis. For further information, including treatment recommendations, please refer to the 2019 ISCD Official Positions (http://www.iscd.org) and the NOF's Clinician's Guide to Prevention and Treatment of Osteoporosis (http://www.nof.org/professionals/clinical-guidelines) THIS IS AN ELECTRONICALLY VERIFIED FINAL REPORT 10/05/2024 2:00 PM - Electronically signed by Sabrina Mahajan M.D. TW: TW Report ID: [id number] Reading Location: [id number] Procedure Note Sabrina Mahajan MD - 10/05/2024 EXAM DESCRIPTION: DEXA AXIAL SKELETON BONE DENSITY 1 OR MORE SITES REASON FOR STUDY: 79 y/o year old F with given history of: Post menopausal status. History of prior fracture. Patient has taken/istaking vitamin-D, calcium, Actonel and hormone replacement therapy. 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 LEFT HIP: Total BMD is 0.741 g/cm2 T-score is -1.6 This is a 2.4% decrease in comparison to prior exam which is notstatistically significant. Femoral neck BMD is 0.606 g/cm2 T-score is -2.2 FRAX: 10 year risk for a major osteoporotic fracture is 22 %, 10 year risk for ahip fracture is 6.3 % IMPRESSION: Low bone mass REFERENCE: Bone mineral density: T-Score: Normal (T-score above or = -1.0) Low bone mass (T-score between -1.0 and -2.5) replaces thepreviously used term osteopenia Osteoporosis (T-score = or below -2.5) Z-Score: Within the expected range for age (Z-score above -2.0) Below the expected range for age (Z-score is -2.0 or below) Please see below follow up recommendations. Medical evaluation forsecondary causes of low bone mineral density may be appropriate. FRAX is a World Health Organization validated fracture risk assessmenttool that calculates a person's 10 year probability of a major osteoporosisrelated fracture and hip fracture. According to the National OsteoporosisFoundation guidelines, postmenopausal women and men age 50 or older with low bonemass and a 10 year probability of a major osteoporosis related fracture = or greater than 20% or a 10 year probability of a hip fracture = or greaterthan 3% should be considered for pharmacological treatment for the preventionof osteoporosis. For further information, including treatment recommendations, please referto the 2019 ISCD Official Positions (http://www.iscd.org) and the NOF's Clinician's Guide to Prevention and Treatment of Osteoporosis (http://www.nof.org/professionals/clinical-guidelines) THIS IS AN ELECTRONICALLY VERIFIED FINAL REPORT 10/05/2024 2:00 PM - Electronically signed by Sabrina Mahajan M.D. TW: TW Report ID: [id number] Reading Location: [place] [address] Mere John MD IM DXA PROCEDURES Final Result * HM COLONOSCOPY (08/25/2024) Historical Provider HEALTH MAINTENANCE Final Result * Hepatitis C antibody (10/03/2020 1:28 PM PROOFER) Pathologist [facility] Hep C Ab NONREACT NONREACTIVE [facility] Comment: Siemens CentaurXP using ABILIO (chemiluminescent immunoassay) technology. NONREACTIVE: Antibodies to Hepatitis C not detected. This does not exclude early acute Hepatitis C infection, possibility of exposure to Hepatitis C, antibodies below detection limit, or to lack of antibody reactivity to the antigen used in this assay. EQUIVOCAL: Antibodies to Hepatitis C may or may not be present. Sample to be confirmed by real-time PCR method. REACTIVE: Antibodies to Hepatitis C detected.Sample to be confirmed by real-time PCR method. 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 [place] [address] [facility] Address: [address] [address] [place] [address] [employer] [id number] [facility] MEDICARE ADVANTAGE [employer] MEDICARE ADVANTAGE Advance Directives For more information, please contact: [phone] Documents on File Type Date Recorded Patient Pearl Hand Expl anation Advance Directives and Livin g Will 04/01/2025 6:34 AM Power of Bottle Tester 10/22/2024 7:24 AM * Full Code (Latest Code Status on File) Date Activated Date Inactivated Comments 04/01/2025 12:44 PM 04/05/2025 6:47 PM Care Teams Walking Dragline Oiler Relationship Specialty Start Date End Date Mere John MD [address] [place] [address] PCP - General Family Medicine 03/09/19 Tavia Damon MD [address] [facility] [address] [place] [address] Referring Physician Gynecology 10/05/24 [place] [address] [facility] [address] [place] [address] Referring Physician Cardiovascular Disease 03/19/25 Ema Florentino PA [address] [facility] [address] [place] [address] Physician Freelance Makeup Artist Orthopedic Surgery 04/02/25
--- OUTSIDE RECORDS SUMMARY | 2025-07-22 08:26 | XMS_ITS | Encounter Summary ---
Author Organization [facility] Facility Care Team Providers Care Maintenance Technician 3Rd Shift Name Role Phone Mere John MD Primary Care Provi jazmin Mere John MD Primary Care Provi jazmin Jaden Garcia MD Unavailable [phone] Tavia Damon MD Unavailable Vtior Snyder MD Unavailable [phone] Ema Florentino Unavailable [phone] Encounter Details Date Type Department Care Team (Latest Contact Info) Description 02/18/2015 Orders Only [facility] CLINCONV ProviderTulio MD [address] [place] [address] Social History Tobacco Use Types Packs/Day Years Used Date Smoking Tobacco: Never Assessed Comments Unknown Sex and Gender Information Value Date Recorded Sex Assigned at Not on file Legal Sex Female 3:27 AM CAMPUS MANAGER Gender Identity Female 07/12/2020 8:51 AM CDT Sexual Orientation Not on file documented as of this encounter Plan of Treatment Not on file documented as of this encounter Procedures Procedure Name Priority Date/Time Associated Diagnosis Comments CARDIOLOGY REPORT 10/29/2016 12: 00 AM CAMPUS MANAGER documented in this encounter Results * CARDIOLOGY REPORT (10/29/2016 12:00 AM CAMPUS MANAGER) Anatomical Region Laterality Modality Other Narrative 10/29/2016 12:00 AM CAMPUS MANAGER Ordered by an unspecified provider. us Historical Provider [facility] FERNANDEZ [facility]TIZ Final Result documented in this encounter Visit Diagnoses Not on filedocumented in this encounter Care Teams Maintenance Technician 3Rd Shift Relationship Specialty Start Date End Date Mere John MD [address] [place] [address] PCP - General Family Medicine 01/10/19 03/08/19 Mere John MD [address] [place] [address] PCP - General Family Medicine 03/09/19 Jaden Garcia MD [address] [place] [address] Cork Painter And Grader Cardiology 06/26/19 03/18/25 Tavia Damon MD [address] [facility] [address] [address] [place] [address] Referring Physician Gynecology 10/05/24 [place] [address] [facility] [address] [place] [address] Referring Physician Cardiovascular Disease 03/19/25 Ema Florentino PA [address] [facility] [address] [address] [place] [address] Physician Rehabilitation Psychologist Orthopedic Surgery 04/02/25 documented as of this encounter
--- OUTSIDE RECORDS SUMMARY | 2025-07-22 08:26 | XMS_ITS | Encounter Summary ---
Author Organization [facility] Healthcare Address [address] [place] [address] Care Team Providers Care Solution Design And Analysis Manager Name Role Phone Mere John MD Primary Care Provi jazmin Tavia Damon MD Unavailable Vitor Snyder MD Unavailable [phone] Ema Florentino Unavailable [phone] Encounter Details Date Type Department Care Team (Late st Contact Info) Description 06/29/2025 Results Follow-Up [facility] Family Medicine [address] [address] Mere John MD [address] [address] Screening Mammogram Bilateral W Raj Social History Tobacco Use Types Packs/Day Years Used Date Smoking Tobacco: Former Cigarettes 0 10/21/1960 - 10/21/1980 Smokeless Tobacco: Never Alcohol Use Standard Drinks/Week Comments Yes 2 (1 standard drink = 0.6 oz pur e alcohol) [facility] Utilities Answer Date Recorded In the past 12 months has [employer], gas, oil, or water company threatened to shut off services in your [...] week 04/02/2025 How often do you attend chur ch or scientology services? More than 4 times per year 04/02/2025 Do you belong to any clubs o r organizations such as confucianist groups, unions, fraternal or athletic groups, or [...] any time in the past 12 m [facility], were you homeless or living in a chcf (including now)? No 04/02/2025 AUDIT-C Answer Date [...] on file Legal Sex Female 3:27 AM PROFESSOR OF PRACTICE Gender Identity Female 07/12/2020 8:51 AM CDT Sexual Orientation Not on file documented as of this encounter Miscellaneous Notes * Result Encounter Note - Kavitha Schultz LPN - 06/29/2025 3:17 PM CDT Pt informed, voiced understanding. documented in this encounter Plan of Treatment Not on file documented as of this encounter Goals Goal Patient Goal Type Associated Problems Recent Progress Patient-Stated? 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/02/2025 documented as of this encounter Care Teams Solution Design And Analysis Manager Relationship Specialty Start Date End Date Mere John MD [address] [place] [address] PCP - General Family Medicine 03/09/19 Tavia Damon MD [address] [facility] [address] [place] [address] Referring Physician Gynecology 10/05/24 [place] [address] [address] [facility] [address] [place] [address] Referring Physician Cardiovascular Disease 03/19/25 Ema Florentino PA [address] [facility] [address] [address] [place] [address] Physician Boiler Testing Technician Orthopedic Surgery 04/02/25 documented as of this encounter
--- OUTSIDE RECORDS SUMMARY | 2025-07-22 08:26 | XMS_ITS | Encounter Summary ---
Author Organization [facility] Facility Care Team Providers Care Fence Manufacture Supervisor Name Role Phone Mere John MD Primary Care Provi jazmin Mere John MD Primary Care Provi jazmin Jaden Garcia MD Unavailable [phone] Tavia Damon MD Unavailable [phone] Vitor Snyder MD Unavailable Ema Florentino Unavailable [phone] Encounter Details Date Type Department Care Team (Latest Contact Info) Description 11/05/2012 Orders Only [facility] CLINCONV ProviderTulio MD [address] [place] [address] Social History Tobacco Use Types Packs/Day Years Used Date Smoking Tobacco: Never Assessed Comments Unknown Sex and Gender Information Value Date Recorded Sex Assigned at Not on file Legal Sex Female 3:27 AM ELECTRONIC BENCH TECHNICIAN Gender Identity Female 07/12/2020 8:51 AM CDT Sexual Orientation Not on file documented as of this encounter Plan of Treatment Not on file documented as of this encounter Procedures Procedure Name Priority Date/Time Associated Diagnosis Comments CARDIOLOGY REPORT 10/29/2016 12: 00 AM ELECTRONIC BENCH TECHNICIAN documented in this encounter Results * CARDIOLOGY REPORT (10/29/2016 12:00 AM ELECTRONIC BENCH TECHNICIAN) Anatomical Region Laterality Modality Other Narrative 10/29/2016 12:00 AM ELECTRONIC BENCH TECHNICIAN Ordered by an unspecified provider. us Historical Provider [facility] FERNANDEZ ORTIZ Final Result documented in this encounter Visit Diagnoses Not on filedocumented in this encounter Care Teams Fence Manufacture Supervisor Relationship Specialty Start Date End Date Mere John MD [address] [place] [address] PCP - General Family Medicine 01/10/19 03/08/19 Mere John MD [address] [place] [address] PCP - General Family Medicine 03/09/19 Jaden Garcia MD [address] [place] [address] Leaded Glass Installer Cardiology 06/26/19 03/18/25 Tavia Damon MD [address] [facility] [address] [place] [address] Referring Physician Gynecology 10/05/24 [place] [address] [facility] [address] [facility] [address] [place] [address] Referring Physician Cardiovascular Disease 03/19/25 Ema Florentino PA [address] [facility] [address] [place] [address] Physician Campus Recruiting Internship Orthopedic Surgery 04/02/25 documented as of this encounter
--- OUTSIDE RECORDS SUMMARY | 2025-07-22 08:26 | XMS_ITS | Encounter Summary ---
Author Organization [facility] Healthcare Address [address] [place] [address] Care Team Providers Care Thermal Engineer Name Role Phone Mere John MD Primary Care Provi jazmin Tavia Damon MD Unavailable [phone] Vitor Snyder MD Unavailable Ema Florentino Unavailable [phone] Encounter Details Date Type Department Care Team (Late st Contact Info) Description 06/29/2025 Results Follow-Up [facility] Medical Group Family Medicine [address] [address] Mere John MD [address] [address] Iron profile w/ IBC, CBC with auto differential, Differential, auto Social History Tobacco Use Types Packs/Day Years Used Date Smoking Tobacco: Former Cigarettes 0 10/21/1960 - 10/21/1980 Smokeless Tobacco: Never Alcohol Use Standard Drinks/Week Comments Yes 2 (1 standard drink = 0.6 oz pur e alcohol) [facility] Utilities Answer Date Recorded In the past 12 months has e electric, gas, oil, or water company threatened to [...] often do you attend chur ch or yazidi services? More than 4 times per year 04/02/2025 Do you belong to any clubs o r organizations such as faith groups, unions, fraternal or athletic groups, or [...] any time in the past [address] [facility], were you homeless or living in a [...] on file Legal Sex Female 3:27 AM STAPLE FIBER WASHER Gender Identity Female 07/12/2020 8:51 AM CDT Sexual Orientation Not on file documented as of this encounter Miscellaneous Notes * Result Encounter Note - Kavitha Schultz LPN - 06/29/2025 3:58 PM CDT Pt informed, she will follow up with endo to get a paper script for lab. * Telephone Encounter - Mere John MD - 06/29/2025 3:[address] Lovell ordered it for Burak. She is not in our system. Michelle wanted it to be done at [facility],but that did not happen. We can try to reach out to Dr Lovell, but she may need to go to the officeto get the order for Burak? * Result Encounter Note - Kavitha Schultz LPN - 06/29/2025 3:19 PM CDT Images from the original note were not included. Pt informed, voiced understanding. She states her lead network architect wanted her to get a ACTH done butno one has ordered it and she has reached out to them to order, to no avail. Please advise. documented in this encounter Plan of Treatment [...] documented as of this encounter Care Teams Thermal Engineer Relationship Specialty Start Date End Date Mere John MD [address] [place] [address] PCP - General Family Medicine 03/09/19 Tavia Damon MD [address] [facility] [address] [place] [address] Referring Physician Gynecology 10/05/24 [place] [address] [address] Referring Physician Cardiovascular Disease 03/19/25 Ema Florentino PA [address] [facility] [address] [place] [address] Physician Press Hand Orthopedic Surgery 04/02/25 documented as of this encounter
--- OUTSIDE RECORDS SUMMARY | 2025-07-22 08:26 | XMS_ITS | Encounter Summary ---
Author Organization [facility] Facility Care Team Providers Care Roller Bearing Inspector Name Role Phone Mere John MD Primary Care Provi jazmin Mere John MD Primary Care Provi jazmin Jaden Garcia MD Unavailable [phone] Tavia Damon MD Unavailable [phone] Vitor Snyder MD Unavailable [phone] Ema Florentino Unavailable [phone] Encounter Details Date Type Department Care Team (Latest Contact Info) Description 09/18/2016 Orders Only [facility] CLINCONV ProviderTulio MD [address] [place] [address] Social History Tobacco Use Types Packs/Day Years Used Date Smoking Tobacco: Never Assessed Comments Unknown Sex and Gender Information Value Date Recorded Sex Assigned at Not on file Legal Sex Female 3:27 AM MOTOR LODGE CLERK Gender Identity Female 07/12/2020 8:51 AM CDT Sexual Orientation Not on file documented as of this encounter Plan of Treatment Not on file documented as of this encounter Procedures Procedure Name Priority Date/Time Associated Diagnosis Comments SCAN - LABS 09/18/2016 12:00 AM MOTOR LODGE CLERK documented in this encounter Results * SCAN - LABS (09/18/2016 12:00 AM MOTOR LODGE CLERK) Narrative 09/18/2016 12:00 AM MOTOR LODGE CLERK Ordered by an unspecified provider. Historical Provider Final Res ult documented in this encounter Visit Diagnoses Not on filedocumented in this encounter Care Teams Roller Bearing Inspector Relationship Specialty Start Date End Date Mere John MD [address] [place] [address] PCP - General Family Medicine 01/10/19 03/08/19 Mere John MD [address] [place] [address] PCP - General Family Medicine 03/09/19 Jaden Garcia MD [address] [place] [address] Test Developer Cardiology 06/26/19 03/18/25 Tavia Damon MD [address] [facility] [address] [place] [address] Referring Physician Gynecology 10/05/24 [place] [address] [facility] [address] [facility] [address] [place] [address] Referring Physician Cardiovascular Disease 03/19/25 Ema Florentino PA [address] [facility] [address] [place] [address] Physician Vessel Manager Orthopedic Surgery 04/02/25 documented as of this encounter
--- OUTSIDE RECORDS SUMMARY | 2025-07-22 08:26 | XMS_ITS | Encounter Summary ---
Author Organization [facility] Address [address] [place] [address] Care Team Providers Care Leather Tanner Name Role Phone Froilan Barakat MD Primary Care Provider [phone] Encounter Details Date Type Department Care Team (Late st Contact Info) Description 04/21/2020 Lab Requisition [facility] DermPath Lab [address] [facility], [place] [phone] Myah Thrasher MD [address] [facility] [address] [place] [address] Social History Tobacco Use Types Packs/Day Years Used Date Smoking Tobacco: Former Cigarettes Q uit: 10/21/1980 Alcohol Use Standard Drinks/Week Comments No 0 (1 standard drink = 0.6 oz pur e alcohol) Comments Unknown Sex and Gender Information Value Date Recorded Sex Assigned at Not on file Legal Sex Female 5:36 PM ORACLE PROGRAMMER Gender Identity Not on file Sexual Orientation Not on file documented as of this encounter Plan of Treatment Not on file documented as of this encounter Procedures Procedure Name Priority Date/Time Associated Diagnosis Comments DERMATOPATHOLOGY Routine 04/20/2020 12:0 0 AM CDT documented in this encounter Results * DERMATOPATHOLOGY (04/20/2020 12:00 AM CDT) Case Report Dermatopathology Report Case: [id number] Authorizing Provider: Myah Thrasher MD Collected: 04/20/2020 12:00 AM Ordering Location: [facility] DermPath Lab Received: 04/21/2020 02:54 PM Pathologist: Aretha Olguin MD Specimens: A) - Skin, left loaiza sup scar B) - Skin, left loaiza inf scar 0 4:05 PM CDT DERMATOPATHOLOGY LABORATORY Final Diagnosis Specimen A. SKIN, left loaiza sup scar: HYPERPLASTIC (HYPERTROPHIC) ACTINIC KERATOSIS; EXTENDING TO THE BASE OF THE SPECIMEN (L57.0) (see microscopic description and comment) Specimen B. SKIN, left loaiza inf scar: SQUAMOUS CELL CARCINOMA, WELL DIFFERENTIATED (C44.729) (see microscopic description) 0 4:05 PM CDT DERMATOPATHOLOGY LABORATORY at 1605 CDT Clinical History A-B: R/O PN vs suture vs SCC recurrent 0 4:05 PM CDT DERMATOPATHOLOGY LABORATORY Gross Description Specimen A: Received is one formalin filled container labeled with the patient's name and designated left loaiza sup scar. The specimen consists of a shave biopsy measuring 9x6x2 mm. Jar 0. Specimen B: Received is one formalin filled container labeled with the patient's name and designated left loaiza inf scar. The specimen consists of a shave biopsy measuring 7x7x1 and 5x2x1 mm. Jar 0. 0 4:05 PM CDT DERMATOPATHOLOGY LABORATORY Microscopic Description Specimen A. SKIN, left loaiza sup scar: There is hyperkeratosis alternating with parakeratosis. There is epidermal hyperplasia with disorderly maturation of keratinocytes with nuclear pleomorphism confined to the lower half of the epidermis. This process extends to the base of the specimen. COMMENT: A squamous cell carcinoma cannot be ruled out. Additional deeper sections were obtained and reviewed. Specimen B. SKIN, left loaiza inf scar: Arising in the epidermis and extending into the dermis there are irregularly shaped aggregates of keratinocytes showing evidence of premature cornification. Additional deeper sections were obtained and reviewed. 0 4:05 PM CDT DERMATOPATHOLOGY LABORATORY Disclaimer An external and internal positive and negative controls are appropriate for the histochemical, immunohistochemical and immunofluorescence stain(s) in this case (if any), except where stated explicitly. The performance characteristics of the stain(s) cited in this report were developed and its performance characteristic determined by the Dermatopathology Laboratory at [facility], directed by Dr. Amaya Olguin. These tests need not be, and therefore are not, approved by the [place] Food and Drug Administration. The tests are used for clinical purposes. Billing Codes Specimen Charges Stain Charges 04064 90665 1 1 0 4:05 PM CDT DERMATOPATHOLOGY LABORATORY Embedded Images 0 4:05 PM CDT DERMATOPATHOLOGY LABORATORY Pathology/Cytology TISSUE SPECIMEN FROM SKIN / Unknown 04/20/2020 04/21/2020 2:54 PM CDT Miscellaneous samples (specimen) TISSUE SPECIMEN FROM SKIN / Unknown 04/20/2020 04/21/2020 2:54 PM CDT Myah Thrasher MD LAB - PATHOLOGY/CYTOLOGY OR DERABLES Final Result DERMATOPATHOLOGY LABORATORY [facility] - Department of Dermatology Acid Wash Operator [facility]/[address] [phone] documented in this encounter Visit Diagnoses Not on filedocumented in this encounter Care Teams Leather Tanner Relationship Specialty Start Date End Date Froilan Barakat MD [address] [place] [phone] PCP - General 11/13/11 documented as of this encounter
--- OUTSIDE RECORDS SUMMARY | 2025-07-22 08:26 | XMS_ITS | Encounter Summary ---
Author Organization [facility] Facility Care Team Providers Care Medical Scribe Name Role Phone Mere John MD Primary Care Provi jazmin Mere John MD Primary Care Provi jazmin Jaden Garcia MD Unavailable [phone] Tavia Damon MD Unavailable [phone] Vitor Snyder MD Unavailable [phone] Ema Florentino Unavailable [phone] Encounter Details Date Type Department Care Team (Latest Contact Info) Description 01/25/2014 Orders Only [facility] CLINCONV ProviderTulio MD [address] [place] [address] Social History Tobacco Use Types Packs/Day Years Used Date Smoking Tobacco: Never Assessed Comments Unknown Sex and Gender Information Value Date Recorded Sex Assigned at Not on file Legal Sex Female 3:27 AM PLANT OPERATIONS WORKER Gender Identity Female 07/12/2020 8:51 AM CDT Sexual Orientation Not on file documented as of this encounter Plan of Treatment Not on file documented as of this encounter Procedures Procedure Name Priority Date/Time Associated Diagnosis Comments CARDIOLOGY REPORT 10/29/2016 12: 00 AM PLANT OPERATIONS WORKER documented in this encounter Results * CARDIOLOGY REPORT (10/29/2016 12:00 AM PLANT OPERATIONS WORKER) Anatomical Region Laterality Modality Other Narrative 10/29/2016 12:00 AM PLANT OPERATIONS WORKER Ordered by an unspecified provider. us Historical Provider CV CARDIAC SERVICES FERNANDEZ ORTIZ Final Result documented in this encounter Visit Diagnoses Not on filedocumented in this encounter Care Teams Medical Scribe Relationship Specialty Start Date End Date Mere John MD [address] [place] [address] PCP - General Family Medicine 01/10/19 03/08/19 Mere John MD [address] [place] [address] PCP - General Family Medicine 03/09/19 Jaden Garcia MD [address] [place] [address] Appellate Conferee Cardiology 06/26/19 03/18/25 Tavia Damon MD [address] [facility] [address] [place] [address] Referring Physician Gynecology 10/05/24 [place] [address] [facility] [address] [facility] [address] [place] [address] Referring Physician Cardiovascular Disease 03/19/25 Ema Florentino PA [address] [facility] [address] [place] [address] Physician Sheep Rancher Orthopedic Surgery 04/02/25 documented as of this encounter
--- OUTSIDE RECORDS SUMMARY | 2025-07-22 08:26 | XMS_ITS | Encounter Summary ---
Author Organization [facility] Address [address] [facility] [place] [address] Care Team Providers Care Director Of Home Economics Name Role Phone Froilan Barakat MD Primary Care Provider Encounter Details Date Type Department Care Team (Late st Contact Info) Description 04/21/2019 Lab Requisition [facility] Care DermPath Lab [address] [facility] [place] [phone] Mayh Thrasher MD [address] [facility] [address] [place] [address] Social History Tobacco Use Types Packs/Day Years Used Date Smoking Tobacco: Former Cigarettes Q uit: 10/21/1980 Alcohol Use Standard Drinks/Week Comments No 0 (1 standard drink = 0.6 oz pur e alcohol) Comments Unknown Sex and Gender Information Value Date Recorded Sex Assigned at Not on file Legal Sex Female 5:36 PM WOOD CARVER Gender Identity Not on file Sexual Orientation Not on file documented as of this encounter Plan of Treatment Not on file documented as of this encounter Procedures Procedure Name Priority Date/Time Associated Diagnosis Comments DERMATOPATHOLOGY Routine 04/20/2019 12:0 0 AM CDT documented in this encounter Results * DERMATOPATHOLOGY (04/20/2019 12:00 AM CDT) Case Report Dermatopathology Report Case: [id number] Authorizing Provider: Myah Thrasher MD Collected: 04/20/2019 12:00 AM Pathologist: Ludmila Aragon MD Received: 04/21/2019 11:57 AM Specimen: Skin, left lower leg 1:03 PM CDT DERMATOPATHOLOGY LABORATORY Final Diagnosis Specimen A. SKIN, left lower leg: SQUAMOUS CELL CARCINOMA, WELL DIFFERENTIATED (C44.729) 1:03 PM CDT DERMATOPATHOLOGY LABORATORY at 1303 CDT Clinical History R/O SCC, growing, irritated, non-healing. 1:03 PM CDT DERMATOPATHOLOGY LABORATORY Gross Description Specimen A: Received is one formalin filled container labeled with the patient's name and designated left lower leg. The specimen consists of a shave measuring [id number]. Jar 0. 1:03 PM CDT DERMATOPATHOLOGY LABORATORY Microscopic Description Specimen A. SKIN, left lower leg: Arising in the epidermis and extending into the dermis there are irregularly shaped aggregates of keratinocytes showing evidence of premature cornification. 1:03 PM CDT DERMATOPATHOLOGY LABORATORY Disclaimer An external and internal positive and negative controls are appropriate for the histochemical, immunohistochemical and immunofluorescence stain(s) in this case (if any), except where stated explicitly. The performance characteristics of the stain(s) cited in this report were developed and its performance characteristic determined by the Dermatopathology Laboratory at [facility], directed by Dr. Amaya Olguin. These tests need not be, and therefore are not, approved by the [place] Food and Drug Administration. The tests are used for clinical purposes. Billing Codes Specimen Charges Stain Charges 45679 1 1:03 PM CDT DERMATOPATHOLOGY LABORATORY Embedded Images 1:03 PM CDT DERMATOPATHOLOGY LABORATORY Pathology/Cytolog y TISSUE SPECIMEN FROM SKIN / Unknown 04/20/2019 04/21/2019 11:57 AM CDT Myah Thrasher MD LAB - PATHOLOGY/CYTOLOGY OR DERABLES Final Result DERMATOPATHOLOGY LABORATORY [facility] - Department of Dermatology [facility] [facility], 5th [place] [address], [facility] [phone] documented in this encounter Visit Diagnoses Not on filedocumented in this encounter Care Teams Director Of Home Economics Relationship Specialty Start Date End Date Froilan Barakat MD [address] [facility] [address] [place] [address] PCP - General 11/13/11 documented as of this encounter
--- OUTSIDE RECORDS SUMMARY | 2025-07-22 08:26 | XMS_ITS | Encounter Summary ---
Author Organization [facility] Healthcare Address [address] [place] [address] Care Team Providers Care Field Engineer Name Role Phone Mere John MD Primary Care Provi jazmin Tavia Damon MD Unavailable [phone] Vitor Snyder MD Unavailable [phone] Ema Florentino Unavailable [phone] Encounter Details Date Type Department Care Team (Late st Contact Info) Description 06/18/2025 Results Follow-Up [facility] Medical Group Family Medicine [address] [address] Mere John MD [address] [address] Basic metabolic panel, eGFR, Hepatitis B surface antibody (immune status) Blood Social History Tobacco Use Types Packs/Day Years Used Date Smoking Tobacco: Former Cigarettes 0 10/21/1960 - 10/21/1980 Smokeless Tobacco: Never Alcohol Use Standard Drinks/Week Comments Yes 1 (1 standard drink = 0.6 oz pur e alcohol) [facility] Utilities Answer Date Recorded In the [...] often do you attend chur ch or mormonism services? More than 4 times per year 04/02/2025 Do you belong to any clubs o r organizations such as pentecostalism groups, unions, fraternal or athletic groups, or [...] time in the past 12 m [facility], were you homeless or living in a detention (including now)? No 04/02/2025 AUDIT-C Answer Date [...] on file Legal Sex Female 3:27 AM COMPASS OPERATOR Gender Identity Female 07/12/2020 8:51 AM CDT [...] documented as of this encounter Care Teams Field Engineer Relationship Specialty Start Date End Date Mere John MD [address] [place] [address] PCP - General Family Medicine 03/09/19 Tavia Damon MD [address] [place] [address] Referring Physician Gynecology 10/05/24 [place] [address] [facility] [address] [place] [address] Referring Physician Cardiovascular Disease 03/19/25 Ema Florentino PA [address] [facility] [address] [place] [address] Physician Probation And Patrol Agent Orthopedic Surgery 04/02/25 documented as of this encounter
--- OUTSIDE RECORDS SUMMARY | 2025-07-22 08:26 | XMS_ITS | Encounter Summary ---
Author Organization [facility] Facility Care Team Providers Care Porcelain Enamel Sprayer Name Role Phone Mere John MD Primary Care Provi jazmin Mere John MD Primary Care Provi jazmin Jaden Garcia MD Unavailable [phone] Tavia Damon MD Unavailable [phone] Vitor Snyder MD Unavailable [phone] Ema Florentino Unavailable [phone] Encounter Details Date Type Department Care Team (Latest Contact Info) Description 09/20/2017 Orders Only [facility] CLINCONV ProviderTulio MD [address] [place] [address] Social History Tobacco Use Types Packs/Day Years Used Date Smoking Tobacco: Never Assessed Comments Unknown Sex and Gender Information Value Date Recorded Sex Assigned at Not on file Legal Sex Female 3:27 AM CODING SUPPORT SPECIALIST Gender Identity Female 07/12/2020 8:51 AM CDT Sexual Orientation Not on file documented as of this encounter Plan of Treatment Not on file documented as of this encounter Procedures Procedure Name Priority Date/Time Associated Diagnosis Comments SCAN - LABS 09/20/2017 12:00 AM CODING SUPPORT SPECIALIST documented in this encounter Results * SCAN - LABS (09/20/2017 12:00 AM CODING SUPPORT SPECIALIST) Narrative 09/20/2017 12:00 AM CODING SUPPORT SPECIALIST Ordered by an unspecified provider. Historical Provider Final Res ult documented in this encounter Visit Diagnoses Not on filedocumented in this encounter Care Teams Porcelain Enamel Sprayer Relationship Specialty Start Date End Date Mere John MD [address] [place] [address] PCP - General Family Medicine 01/10/19 03/08/19 Mere John MD [address] [place] [address] PCP - General Family Medicine 03/09/19 Jaden Garcia MD [address] [place] [address] Rehabilitation Attendant Cardiology 06/26/19 03/18/25 Tavia Damon MD [address] [facility] [address] [place] [address] Referring Physician Gynecology 10/05/24 [place] [address] [facility] [address] [facility] [address] [place] [address] Referring Physician Cardiovascular Disease 03/19/25 Ema Florentino PA [address] [facility] [address] [place] [address] Physician Oral Communication Instructor Orthopedic Surgery 04/02/25 documented as of this encounter
--- OUTSIDE RECORDS SUMMARY | 2025-07-22 08:26 | XMS_ITS | Encounter Summary ---
Author Organization [facility] Facility Care Team Providers Care Behavior Clinician Name Role Phone Mere John MD Primary Care Provi jazmin Mere John MD Primary Care Provi jazmin Jaden Garcia MD Unavailable [phone] Tavia Damon MD Unavailable [phone] Vitor Snyder MD Unavailable [phone] Ema Florentino Unavailable [phone] Encounter Details Date Type Department Care Team (Latest Contact Info) Description 02/20/2017 Orders Only [facility] CLINCONV ProviderTulio MD [address] [place] [address] Social History Tobacco Use Types Packs/Day Years Used Date Smoking Tobacco: Never Assessed Comments Unknown Sex and Gender Information Value Date Recorded Sex Assigned at Not on file Legal Sex Female 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 us Historical Provider CV CARDIAC SERVICES PROCE DURES Final Result * CARDIOLOGY REPORT (02/20/2017 12:00 AM CDT) Anatomical Region Laterality Modality Other Narrative 02/20/2017 12:00 AM CDT Ordered by an unspecified provider. Historical Provider CV CARDIAC SERVICES PROCE DURES Final Result documented in this encounter Visit Diagnoses Not on filedocumented in this encounter Care Teams Behavior Clinician Relationship Specialty Start Date End Date Mere John MD [address] [place] [address] PCP - General Family Medicine 01/10/19 03/08/19 Mere John MD [address] [place] [address] PCP - General Family Medicine 03/09/19 Jaden Garcia MD [address] [place] [address] Electrician Apprentice Cardiology 06/26/19 03/18/25 Tavia Damon MD [address] [place] [address] Referring Physician Gynecology 10/05/[address] [place] [address] [facility] [address] [place] [address] Referring Physician Cardiovascular Disease 03/19/25 Ema Florentino PA [address] [facility] [address] [place] [address] Physician Steward/Stewardess Bath Orthopedic Surgery 04/02/25 documented as of this encounter
--- OUTSIDE RECORDS SUMMARY | 2025-07-22 08:26 | XMS_ITS | Encounter Summary ---
Author Organization [facility] Facility Care Team Providers Care Hoop Cutter Name Role Phone Mere John MD Primary Care Provi jazmin Mere John MD Primary Care Provi jazmin Jaden Garcia MD Unavailable [phone] Tavia Damon MD Unavailable [phone] Vitor Snyder MD Unavailable [phone] Ema Florentino Unavailable [phone] Encounter Details Date Type Department Care Team (Latest Contact Info) Description 03/21/2018 Orders Only [facility] CLINCONV ProvideruTlio MD [address] [place] [address] Social History Tobacco Use Types Packs/Day Years Used Date Smoking Tobacco: Never Assessed Comments Unknown Sex and Gender Information Value Date Recorded Sex Assigned at Not on file Legal Sex Female 3:27 AM COLLETER Gender Identity Female 07/12/2020 8:51 AM CDT Sexual Orientation Not on file documented as of this encounter Plan of Treatment Not on file documented as of this encounter Procedures Procedure Name Priority Date/Time Associated Diagnosis Comments SCAN - LABS 03/24/2018 12:00 AM CDT documented in this encounter Results * SCAN - LABS (03/24/2018 12:00 AM CDT) Narrative 03/24/2018 12:00 AM CDT Ordered by an unspecified provider. us Historical Provider Final Res ult documented in this encounter Visit Diagnoses Not on filedocumented in this encounter Care Teams Hoop Cutter Relationship Specialty Start Date End Date Mere John MD [address] [place] [address] PCP - General Family Medicine 01/10/19 03/08/19 Mere John MD [address] [place] [address] PCP - General Family Medicine 03/09/19 Jaden Garcia MD [address] [place] [address] Deputy Fire Chief Cardiology 06/26/19 03/18/25 Tavia Damon MD [address] [facility] [address] [place] [address] Referring Physician Gynecology 10/05/24 [place] [address] [facility] [address] [place] [address] Referring Physician Cardiovascular Disease 03/19/25 Ema Florentino PA [address] [facility] [address] [place] [address] Physician Overlock Elastic Attacher Orthopedic Surgery 04/02/25 documented as of this encounter
--- OUTSIDE RECORDS SUMMARY | 2025-07-22 08:27 | XMS_ITS | Patient Health Record ---
Author Organization [facility] Address [address] [place], [place] [address] Care Team Providers Care Gymnastics Coach Name Role Phone MADHURI Duenas Unavailable [phone] Froilan Barakat Unavailable Unavailable Reason For Referral No Information Medications Medication SIG (Take, Route, Frequency, Duration) Notes Start Date End Date Status Indapamide 2.5 MG Oral Tablet ORAL indapamide 2.5 MG Oral TabletOriginal Medicationindapamide 2.5 MG Oral Tablet *Reorder from [facility] for eRx and Interaction Alerts* 3 Active potassium bicarbonate 10 MEQ Effervescent Oral Tablet ORAL potassium bicarbonate 10 MEQ Effervescent Oral TabletOriginal Medicationpotassium bicarbonate 10 MEQ Effervescent Oral Tablet *Reorder from [facility] for eRx and Interaction Alerts* 3 Active omeprazole 20 MG Delayed Release Oral Capsule ORAL omeprazole 20 MG Delayed Release Oral CapsuleOriginal Medicationomeprazole 20 MG Delayed Release Oral Capsule *Reorder from [facility] for eRx and Interaction Alerts* 3 Active montelukast 10 MG Oral Tablet [Singulair] ORAL montelukast 10 MG Oral Tablet [Singulair]Original Medicationmontelukast 10 MG Oral Tablet [Singulair] *Reorder from [facility] for eRx and Interaction Alerts* 3 Active levothyroxine sodium 0.112 MG Oral Tablet [Levoxyl] ORAL levothyroxine sodium 0.112 MG Oral Tablet [Levoxyl]Original Medicationlevothyroxine sodium 0.112 MG Oral Tablet [Levoxyl] *Reorder from [facility] for eRx and Interaction Alerts* 3 Active levofloxacin 500 MG Oral Tablet [Levaquin] ORAL levofloxacin 500 MG Oral Tablet [Levaquin]Original Medicationlevofloxacin 500 MG Oral Tablet [Levaquin] *Reorder from [facility] for eRx and Interaction Alerts* 3 Active clonidine hydrochloride 0.2 MG Oral Tablet ORAL clonidine hydrochloride 0.2 MG Oral TabletOriginal Medicationclonidine hydrochloride 0.2 MG Oral Tablet *Reorder from [facility] for eRx and Interaction Alerts* 3 Active atorvastatin 80 MG Oral Tablet [Lipitor] ORAL atorvastatin 80 MG Oral Tablet [Lipitor]Original Medicationatorvastatin 80 MG Oral Tablet [Lipitor] *Reorder from [facility] for eRx and Interaction Alerts* 3 Active aspirin 81 MG Delayed Release Oral Tablet ORAL aspirin 81 MG Delayed Release Oral TabletOriginal Medicationaspirin 81 MG Delayed Release Oral Tablet *Reorder from [facility] for eRx and Interaction Alerts* 3 Active amlodipine 5 MG / benazepril hydrochloride 20 MG Oral Capsule ORAL amlodipine 5 MG / benazepril hydrochloride 20 MG Oral CapsuleOriginal Medicationamlodipine 5 MG / benazepril hydrochloride 20 MG Oral Capsule *Reorder from [facility] for eRx and Interaction Alerts* 3 Active 14 ACTUAT fluticasone propionate 0.25 MG/ACTUAT / salmeterol 0.05 MG/ACTUAT Dry Powder Inhaler [Advair] INTRAPULMONARY 14 ACTUAT fluticasone propionate 0.25 MG/ACTUAT / salmeterol 0.05 MG/ACTUAT Dry Powder Inhaler [Advair]Original [id number] ACTUAT fluticasone propionate 0.25 MG/ACTUAT / salmeterol 0.05 MG/ACTUAT Dry Powder I 3 Active Plan Of Treatment No Information Insurance Providers Payer Name Payer Address Payer Phone Subscriber Number Group Number Insured Name Patient Relationship to Insured Coverage Start Date Coverage End Date Medicare Part B [facility] [address] [place] [phone] [id number] BOB DIAZ Self - patient is the insured [address] [place] [address] [id number] BOB DIAZ Self - patient is the insured
--- OUTSIDE RECORDS SUMMARY | 2025-07-22 08:27 | XMS_ITS | Clinical Summary ---
Author Organization [facility] Address [facility] [place] [address] Care Team Providers Care Flask Carrier Name Role Phone Froilan Barakat MD Primary Care Provider [phone] Allergies No known active allergies Medications ELIQUIS 5 MG tablet Take 1 tablet (5 mg total) by mouth 2 (two) times daily. Active dilTIAZem CD 360 MG CAPSULE SR 24 HR 24 hr capsule Take 1 capsule by mouth daily. Active atorvastatin (LIPITOR) 40 MG tablet Take 1 tablet (40 mg total) by mouth daily. Active levothyroxine (SYNTHROID) 112 MCG tablet Take 1 tablet (112 mcg total) by mouth daily. Active montelukast (SINGULAIR) 10 MG tablet Take 1 tablet (10 mg total) by mouth nightly. Active risedronate (ACTONEL) 150 MG tablet TAKE 1 TABLET BY MOUTH ONCE A MONTH 4 Active losartan (COZAAR) 25 MG tablet Take 1 tablet (25 mg total) by mouth daily. Active albuterol sulfate HFA 108 (90 Base) MCG/ACT inhaler INHALE 2 PUFFS EVERY 4 HOURS NEEDED FOR WHEEZING OR SHORTNESS OF BREATH 4 Active metoprolol succinate ER (TOPROL-XL) 25 MG 24 hr tablet Take 1 tablet (25 mg total) by mouth daily. Active Family History Medical History Relation Comments Breast Cancer Maternal Grandmother Relation Status Comments Maternal Grandmother Social History Tobacco Use Types Packs/Day Years Used Date Smoking Tobacco: Former Cigarettes Passive Smoke Exposure: Past Smokeless Tobacco: Never Tobacco Cessation:Counseling Given: Not Answered Alcohol Use Standard Drinks/Week Comments Yes 0 (1 standard drink = 0.6 oz pur e alcohol) socially Comments No Sex and Gender Information Value Date Recorded Sex Assigned at Female 12/30/2024 3:23 PM CDT Legal Sex Female 10:59 PM CDT Gender Identity Not on file Sexual Orientation Not on file Last Filed Vital Signs Vital Sign Reading Time Taken Comments Blood Pressure 146/86 02/17/2025 10:16 AM CDT Pulse 101 02/17/2025 10:16 AM CDT Temperature 36.1 C (97 F) 02/17/2025 10:16 AM CDT Respiratory Rate 20 02/17/2025 10:16 AM CDT Oxygen Saturation 96% 02/17/2025 10:16 AM CDT Inhaled Oxygen Concentration - - Weight 61.2 kg (135 lb) 02/17/2025 10:16 AM CDT Height 162.6 cm (5' 4) 02/17/2025 10:16 AM CDT Body Mass Index 23.17 02/17/2025 10:16 AM CDT Plan of Treatment Health Maintenance Due Date Last Done Comments Hepatitis C 1963 Zoster Vaccines (1 of 2) 1995 Annual Medicare Wellness Visit 2010 RSV Immunization or 60+ Years (1 - 1-dose 75+ series) 2020 COVID-19 Vaccine ( season) 2025 09/04/2024, 08/17/2023, 10/01/2022, Additional history exists DTaP, Tdap and Td Vaccines (3 - Td or Tdap) 09/03/2028 09/03/2018, 08/21/2018 Pneumococcal Vaccine: 50+ Years Completed 10/02/2019, 09/14/2015 Dexa Scan (General) Completed 10/05/2024, 10/05/2024, 07/06/2019, Additional history exists Meningococcal B Vaccine Aged Out No l onger eligible based on patient's age to complete this topic Meningococcal Vaccine Aged Out No rachel abram eligible based on patient's age to complete this topic RSV Immunizations Under 20 Months Aged Out No longer eligible based on patient's age to complete [place] [address] [place] [address] MEDICARE [facility] MEDICARE Care Teams Flask Carrier Relationship Specialty Start Date End Date Froilan Barakat MD PCP - General 03/27/17
--- OUTSIDE RECORDS SUMMARY | 2025-07-22 08:27 | XMS_ITS | Encounter Summary ---
Author Organization [facility] Facility Care Team Providers Care Manager Clinical Services Name Role Phone Mere John MD Primary Care Provi jazmin Mere John MD Primary Care Provi jazmin Jaden Garcia MD Unavailable [phone] Tavia Damon MD Unavailable [phone] Vitor Snyder MD Unavailable [phone] Ema Florentino Unavailable [phone] Encounter Details Date Type Department Care Team (Latest Contact Info) Description 12/06/2018 Orders Only [facility] CLINCONV ProviderTulio MD [address] [place], [place] [id number] Social History Tobacco Use Types Packs/Day Years Used Date Smoking Tobacco: Never Assessed Comments Unknown Sex and Gender Information Value Date Recorded Sex Assigned at Not on file Legal Sex Female 3:27 AM LAYBOY TENDER Gender Identity Female 07/12/2020 8:51 AM CDT Sexual Orientation Not on file documented as of this encounter Plan of Treatment Not on file documented as of this encounter Procedures Procedure Name Priority Date/Time Associated Diagnosis Comments CARDIOLOGY REPORT 12/25/2018 12: 00 AM LAYBOY TENDER CARDIOLOGY REPORT 12/25/2018 12: 00 AM LAYBOY TENDER documented in this encounter Results * CARDIOLOGY REPORT (12/25/2018 12:00 AM LAYBOY TENDER) Anatomical Region Laterality Modality Other Narrative 12/25/2018 12:00 AM LAYBOY TENDER Ordered by an unspecified provider. us Historical Provider CV CARDIAC SERVICES PROCE DURES Final Result * CARDIOLOGY REPORT (12/25/2018 12:00 AM LAYBOY TENDER) Anatomical Region Laterality Modality Other Narrative 12/25/2018 12:00 AM LAYBOY TENDER Ordered by an unspecified provider. us Historical Provider CV CARDIAC SERVICES PROCE DURES Final Result documented in this encounter Visit Diagnoses Not on filedocumented in this encounter Care Teams Manager Clinical Services Relationship Specialty Start Date End Date Mere John MD [address] [place] [address] PCP - General Family Medicine 01/10/19 03/08/19 Mere John MD [address] [place] [address] PCP - General Family Medicine 03/09/19 Jaden Garcia MD [address] [place] [address] Strategy Manager Cardiology 06/26/19 03/18/25 Tavia Damon MD [address] [place] [address] Referring Physician Gynecology 10/05/24 [place] [address] [address] [place] [address] Referring Physician Cardiovascular Disease 03/19/25 Ema Florentino PA [address] [facility] [address] [place] [address] Physician Dip Lube Operator Orthopedic Surgery 04/02/25 documented as of this encounter
--- OUTSIDE RECORDS SUMMARY | 2025-07-22 08:27 | XMS_ITS | Encounter Summary ---
Author Organization [facility] Facility Care Team Providers Care Report Clerk Name Role Phone Mere John MD Primary Care Provi jazmin Mere John MD Primary Care Provi jazmin Jaden Garcia MD Unavailable [phone] Tavia Damon MD Unavailable [phone] Vitor Snyder MD Unavailable [phone] Ema Florentino Unavailable [phone] Encounter Details Date Type Department Care Team (Latest Contact Info) Description 12/25/2018 Orders Only [facility] CLINCONV ProviderTulio MD [address] [place] [address] Social History Tobacco Use Types Packs/Day Years Used Date Smoking Tobacco: Never Assessed Comments Unknown Sex and Gender Information Value Date Recorded Sex Assigned at Not on file Legal Sex Female 3:27 AM BAND SHOVER Gender Identity Female 07/12/2020 8:51 AM CDT Sexual Orientation Not on file documented as of this encounter Plan of Treatment Not on file documented as of this encounter Procedures Procedure Name Priority Date/Time Associated Diagnosis Comments SCAN - LABS 12/25/2018 12:00 AM BAND SHOVER documented in this encounter Results * SCAN - LABS (12/25/2018 12:00 AM BAND SHOVER) Narrative 12/25/2018 12:00 AM BAND SHOVER Ordered by an unspecified provider. Historical Provider Final Res ult documented in this encounter Visit Diagnoses Not on filedocumented in this encounter Care Teams Report Clerk Relationship Specialty Start Date End Date Mere John MD [address] [place] [address] PCP - General Family Medicine 01/10/19 03/08/19 Mere John MD [address] [place] [address] PCP - General Family Medicine 03/09/19 Jaden Garcia MD [address] [place] [address] Scheduling Representative Cardiology 06/26/19 03/18/25 Tavia Damon MD [address] [facility] [address] [place] [address] Referring Physician Gynecology 10/05/24 [place] [address] [facility] [address] [facility] [address] [place] [address] Referring Physician Cardiovascular Disease 03/19/25 Ema Florentino PA [address] [facility] [address] [place] [address] Physician Shirt Trimmer Orthopedic Surgery 04/02/25 documented as of this encounter
--- OUTSIDE RECORDS SUMMARY | 2025-07-22 08:27 | XMS_ITS | Encounter Summary ---
Author Organization [facility] Facility Care Team Providers Care Slag Expander Name Role Phone Mere John MD Primary Care Provi jazmin Mere John MD Primary Care Provi jazmin Jaden Garcia MD Unavailable [phone] Tavia Damon MD Unavailable [phone] Vitor Snyder MD Unavailable [phone] Ema Florentino Unavailable [phone] Encounter Details Date Type Department Care Team (Latest Contact Info) Description 09/19/2018 Orders Only [facility] CLINCONV ProviderTulio MD [address] [place] [address] Social History Tobacco Use Types Packs/Day Years Used Date Smoking Tobacco: Never Assessed Comments Unknown Sex and Gender Information Value Date Recorded Sex Assigned at Not on file Legal Sex Female 3:27 AM CHEESE SPRAYER Gender Identity Female 07/12/2020 8:51 AM CDT Sexual Orientation Not on file documented as of this encounter Plan of Treatment Not on file documented as of this encounter Procedures Procedure Name Priority Date/Time Associated Diagnosis Comments SCAN - LABS 09/22/2018 12:00 AM CHEESE SPRAYER SCAN - LABS 09/22/2018 12:00 AM CHEESE SPRAYER documented in this encounter Results * SCAN - LABS (09/22/2018 12:00 AM CHEESE SPRAYER) Narrative 09/22/2018 12:00 AM CHEESE SPRAYER Ordered by an unspecified provider. us Historical Provider Final Res ult * SCAN - LABS (09/22/2018 12:00 AM CHEESE SPRAYER) Narrative 09/22/2018 12:00 AM CHEESE SPRAYER Ordered by an unspecified provider. us Historical Provider Final Res ult documented in this encounter Visit Diagnoses Not on filedocumented in this encounter Care Teams Slag Expander Relationship Specialty Start Date End Date Mere John MD [address] [place] [address] PCP - General Family Medicine 01/10/19 03/08/19 Mere John MD [address] [place] [address] PCP - General Family Medicine 03/09/19 Jaden Garcia MD [address] [place] [address] Work Study Student Cardiology 06/26/19 03/18/25 Tavia Damon MD [address] [facility] [address] [place] [address] Referring Physician Gynecology 10/05/24 [place] [address] [facility] [address] [place] [address] Referring Physician Cardiovascular Disease 03/19/25 Ema Florentino PA [address] [facility] [address] [place] [address] Physician Cadmium Liquor Maker Orthopedic Surgery 04/02/25 documented as of this encounter
[2025-07-22] MEDS: COSYNTROPIN 0.25 MG/ML VIAL IM (08:40)
[2025-07-22 10:50] LABS: Cortisol 60 Minute 22.80 ug/dL
== END 2025-07-22 08:19 | disposition home or self-care (01) ==
LOC: ANHLAB 08:20
PROVIDERS: PCP Obstetrics & Gynecology Gynecology; Visit Provider Internal Medicine Endocrinology, Diabetes & Metabolism
DX: E87.1 Hypo-osmolality and hyponatremia (principal)
CPT/HCPCS: 36415; 82533; 96372; J0834